=== PATIENT | female | born 1970 | race Caucasian/White ===

== ENCOUNTER 2024-04-22 15:03 | Emergency (ER) | payer OTHER, SELFPAY ==
--- OUTSIDE RECORDS SUMMARY | 2024-04-22 15:16 | XMS_ITS ---
Author Organization [facility] Address [address] [place] [address] Care Team Providers Care Asbestos Cement Sheet Supervisor Name Role Phone No, Physician Primary Care Provider Active Problems Problem Noted Date Diagnosed Date Hyperplastic polyp of stomach 12/17/2022 Gastroesophageal reflux dise ase with esophagitis without hemorrhage 07/21/2022 Epigastric abdominal pain 06/16/2022 Abdominal pain 12/10/2021 Preventative health care 12/10/2021 Assessment & Plan (12/10/2021 11:52 PM CDT): -labs today -advise q 6 month dental exam -advise annual derm check -advise annual eye exam -advise regular exercise 3-5 times a week for 30 minutes -no family hx of early breast or colon cancer -advise covid vaccine and booster (patient has not gotten) -pnemonia shot, shingles shot -advise obgyn -advise flu shot -advise annual mammogram -all vaccines above discussed with oncologist, who agreed with above plan. Patient has yet to get any of these vaccines but strongly encouraged to do so. Asteatosis cutis 12/09/2016 Vitamin D insufficiency 01/10/2016 Assessment & Plan (01/07/2019 3:13 PM CDT): -on vitamin D3 1000 IU daily -levels at goal Assessment & Plan (01/10/2018 2:27 PM CDT): -on vitamin D3 1000 IU daily -levels at goal Allergic contact dermatitis 08/09/2015 Eczema of hand 07/31/2015 Hypothyroidism 01/09/2014 Assessment & Plan (12/10/2021 11:49 PM CDT): Has been out of medicine for several weeks,. Needs a refill Assessment & Plan (01/07/2019 3:13 PM CDT): -TFTs today at goal -will continue levothyroxine 125 mcg daily Assessment & Plan (01/10/2018 2:26 PM CDT): -TFTs today at goal -will continue levothyroxine 125 mcg daily Hay fever 02/16/2012 Chronic myelogenous leukemia (CMS/HCC) 2 Current Oncology Plans Bosutinib PO 400 mg Daily - CML* Plan Start Date:12/26/2018 Plan Provider:Candido Rios MD PhD Linked Problems Chronic myelogenous leukemia (CMS/HCC) (HCC) Treatment Medications bosutinib (BOSULIF) Past Plans Oncology Chemotherapy Treatment Plan Name Start Date Discontinue Date Treatment Medications Discontinue Reason Plan Provider Cycles [id number] - [facility] - CML - [id number] - Bosutinib Weeks 52+ 12/25/19 16 03/16/2019 [facility] bosutinib (2013-09-135/B [id number]) Therapy Complete Candido Rios MD PhD 5 of 6 cycles completed Radiation Treatments * No radiation treatments are documented for this patient in [facility]. Treatments may have been administered in another system. Resolved Problems Problem Noted Date Diagnosed Date Resolved Date Gastroesophageal reflux dise ase with esophagitis 01/19/2014 12/10/2021
--- OUTSIDE RECORDS SUMMARY | 2024-04-22 15:16 | XMS_ITS | Encounter Summary ---
Author Organization [facility] Address [address] [place] [address] Phone Care Team Providers Care Carder Blankets Name Role Phone Inge Pearson MD Primary Care Provider [phone] No, Physician Primary Care Provider [phone] Encounter Details Date Type Department Care Team (Late st Contact Info) Description 10/14/2020 Telephone [facility] Transplant [address] Floor, [place] [address] Fiordaliza Milian V. Social History Tobacco Use Types Packs/Day Years Used Date Smoking Tobacco: Never Smokeless Tobacco: Never Comments Unknown Sex and Gender Information Value Date Recorded Sex Assigned at Not on file Legal Sex Female 7:18 PM HAZARDOUS MATERIALS HANDLER Gender Identity Female 04/14/2020 4:41 PM HAZARDOUS MATERIALS HANDLER Sexual Orientation Not on file documented as of this encounter Plan of Treatment Scheduled Procedures Name Priority Associated Diagnoses Date/Ti me COLONOSCOPY Screening for colon cancer documented as of this encounter Visit Diagnoses Not on filedocumented in this encounter Care Teams Carder Blankets Relationship Specialty Start Date End Date Inge Pearson MD [address] [place] [address] DR [address] [address] PCP - General Internal Medicine 12/04/21 02/24/24 No, Physician PCP - General 02/25/24 documented as of this encounter
--- OUTSIDE RECORDS SUMMARY | 2024-04-22 15:16 | XMS_ITS | Clinical Summary ---
Author Organization [facility] Address [address] [place] [address] Care Team Providers Care Curriculum And Assessment Director Name Role Phone No, Physician Primary Care Provider [phone] Allergies No known active allergies Medications levonorgestrel (MIRENA) IUDIndications :Chronic myelogenous leukemia (CMS/HCC) ([facility]) by intrauterine route Active cetirizine HCl (ZYRTEC ORAL) Take by mouth Ac tive levothyroxine (Euthyrox) 125 mcg tabletIndicati ons:Hypothyroi dism, unspecified type Take 1 tablet (125 mcg total) by mouth daily 90 tablet 4 12/10/19 22 Active Additional Information Patient not taking.Reported on 02/25/2024 pimecrolimus (ELIDEL) 1 % creamIndicatio ns:Eczematous dermatitis of upper eyelids of both eyes Apply two (2) times daily as needed for eyelid rash 30 g 5 12/31/19 23 Active Additional Information Patient not taking.Reported on 02/25/[address] (NexIUM) 20 mg capsuleIndicat ions:Gastroeso phageal reflux disease with esophagitis without hemorrhage Take 1 capsule (20 mg total) by mouth daily before breakfast 90 capsule 3 06/16/19 24 025 Active clobetasoL (TEMOVATE) 0.05 % creamIndicatio ns:Eczema, unspecified type Bid to eczema on hands until clear. 50 g 2 09/27/19 24 Active Premarin vaginal creamIndicatio ns:Chronic myelogenous leukemia (CMS/HCC) (HCC) INSERT 0.5 GRAMS VAGINALLY AT BEDTIME FOR 14 DAYS, THEN USE 2-3 TIMES A WEEK Active levothyroxine (SYNTHROID) 88 mcg tabletIndicati ons:Chronic myelogenous leukemia (CMS/HCC) (HCC) 12/10/19 24 Active bosutinib (Bosulif) 400 mg tabletIndicati ons:Chronic myelogenous leukemia (CMS/HCC) (HCC) TAKE 1 TABLET DAILY WITH FOOD. SWALLOW WHOLE, DO NOT CRUSH OR CUT. DO NOT TOUCH OR HANDLE CRUSHED OR BROKEN TABLETS 90 tablet 11 03/24/19 25 Active Bosulif 400 mg tabletIndicati ons:Chronic myelogenous leukemia (CMS/HCC) (HCC) TAKE 1 TABLET DAILY WITH FOOD. SWALLOW WHOLE, DO NOT CRUSH OR CUT. DO NOT TOUCH OR HANDLE CRUSHED OR BROKEN TABLETS 30 tablet 11 05/03/19 24 025 Discontinued Active Problems Problem Noted Date Diagnosed Date [...] fever 02/16/2012 Chronic myelogenous leukemia (CMS/HCC) 2 Resolved Problems Problem Noted Date Diagnosed Date Resolved Date Gastroesophageal reflux dise ase with esophagitis 01/19/2014 12/10/2021 Encounters Date Type Department Care Team Description 02/25/2024 12:20 PM ART THERAPY CERTIFIED SUPERVISOR - 02/25/2024 11:59 PM ART THERAPY CERTIFIED SUPERVISOR Hospital Encounter [facility] [address] [place] [id number] Discharge Disposition: Discharge to home or self care 02/25/2024 12:00 PM ART THERAPY CERTIFIED SUPERVISOR [facility]) - [facility] [address] [place] [phone] Sridevi Landin NP Contusion of left lower leg, initial encounter (Primary Dx); Acute pain of left knee 01/28/2024 Documentation [facility] [address] [place] [address] Ehsan Bhandari CPhT Prior Auth (BOSULIF) from Last 3 Months Immunizations Name Administration Dates Next Due Influenza, Trivalent, IM (MDV) 01/25/2014 Influenza, Trivalent, Preservative Free, Intramu scular 12/19/2014 Tdap 09/22/2016 Surgical History Surgery Date Site/Laterality Comments APPENDECTOMY 03/15/2002 - 03/14/2003 LAPAROSCOPY 03/15/1994 - 03/14/1995 ovarian cyst COLONOSCOPY 06/01/2022 UPPER GASTROINTESTINAL ENDOSCOPY Medical History Medical History Date Comments Ulcer, stomach peptic 2014 resolved CML (chronic myelocytic leukemia) (CMS/HCC) (HCC ) 07/2004 gleevec, bosulif tx PONV (postoperative nausea and vomiting) GERD (gastroesophageal reflux disease) Chronic constipation Hypothyroid Family History Medical History Relation Name Comments Stroke Father Family history of cerebrovascular accident - (Added by ESTEPHANIE Conv) Diabetes type I Mother Family histo ry of type 1 diabetes mellitus - (Added by ESTEPHANIE Conv) Relation Name Status Comments Father Mother Social History Tobacco Use Types Packs/Day Years Used Date Smoking Tobacco: Never Smokeless Tobacco: Never Tobacco Cessation:Counseling Given: Not Answered AUDIT-C Answer Date Recorded Q1: How often do you have a drink containing alcohol? Never 01/20/2023 Q2: How many drinks containi ng alcohol do you have on a typical day when you are drinking? Patient does not drink Q3: How often do you have si x or more drinks on one occasion? Never 01/20/2023 PHQ-2 Answer Date Recorded PHQ-2 Total Score (If total score is 3 or more points, staff should administer the PHQ-9) 0 12/09/2021 Personal Safety Answer Date Recorded Have you ever been in or are you currently in a harmful physical or emotional relationship or is someone making you feel afraid or unsafe? Denies 01/20/2023 Comments No Sex and Gender Information Value Date Recorded Sex Assigned at Not on file Legal Sex Female 7:18 PM ART THERAPY CERTIFIED SUPERVISOR Gender Identity Female 04/14/2020 4:41 PM ART THERAPY CERTIFIED SUPERVISOR Sexual Orientation Not on file Obstetrics History Last Filed Vital Signs Vital Sign Reading Time Taken Comments Blood Pressure 127/78 12/13/2023 9:05 AM CDT Pulse 73 12/13/2023 9:05 AM CDT Temperature 37.1 C (98.7 F) 12/13/2023 9:05 AM CDT Respiratory Rate 18 12/13/2023 9:05 AM CDT Oxygen Saturation 99% 12/13/2023 9:05 AM CDT Inhaled Oxygen Concentration - - Weight 70.3 kg (155 lb) 02/25/2024 12:08 PM ART THERAPY CERTIFIED SUPERVISOR Height 172.7 cm (5' 8 ) 02/25/2024 12:08 PM ART THERAPY CERTIFIED SUPERVISOR Body Mass Index 23.57 02/25/2024 12:08 PM ART THERAPY CERTIFIED SUPERVISOR Plan of Treatment Scheduled Procedures Name Priority Associated Diagnoses Date/Ti me COLONOSCOPY Screening for colon cancer Health Maintenance Due Date Last Done Comments Cervical Cancer Screening 1972 Pneumococcal vaccine <65 (1 of 2 - PCV) 1978 Hepatitis B Screening 1990 Zoster Vaccine (1 of 2) 06/06/1991 Depression Screening 12/09/2022 12/09/2021 Regular Well Visit/Exam 18-64 12/09/2022 12/09/2021 Influenza Vaccine (#1) 2023 12/19/2014, 2013 Breast Cancer Screening-Mammogram 11/04/2024 11/05/2023, 11/05/2023, 10/07/2022, Additional history exists DTaP/Tdap/Td Vaccine (2 - Td or Tdap) 09/22/2026 09/22/2016 Colon Cancer Screening-Colonoscopy 06/01/20322022, 04/03/2022 Hepatitis C Screening Completed 11/06/2022 Procedures Procedure Name Priority Date/Time Associated Diagnosis Comments XR KNEE LEFT 3 VIEWS Schedule Routine, Read Routine (OP Routine) 02/25/2024 12:31 PM ART THERAPY CERTIFIED SUPERVISOR Acute pain of left knee HEPATITIS C ANTIBODY Routine 11/06/2022 8:09 AM CDT Need for hepatitis C screening test COLONOSCOPY 06/01/2022 7:24 AM CDT from Last 3 Months or Most Recently Relevant to Health Maintenance Results * XR Knee Left 3 View (02/25/2024 12:31 PM ART THERAPY CERTIFIED SUPERVISOR) Anatomical Region Laterality Modality Lower Extremities, Knee Left Computed Radiography 02/25/2024 12:4 4 PM ART THERAPY CERTIFIED SUPERVISOR Impressions 02/25/2024 12:44 PM ART THERAPY CERTIFIED SUPERVISOR 1. Normal radiographs of the left knee. Electronically signed by: Guerrero Robins M.D. Narrative 02/25/2024 12:44 PM ART THERAPY CERTIFIED SUPERVISOR EXAMINATION: XR KNEE LEFT 3 VIEWS HISTORY: Left knee pain FINDINGS: 3 view examination of the left knee is read without comparison. The left knee joint spaces are normal. There is no fracture, erosion, or joint effusion. Alignment is normal. Procedure Note Guerrero Robins MD - 02/25/2024 EXAMINATION: XR KNEE LEFT 3 VIEWS HISTORY: Left knee pain FINDINGS: 3 view examination of the left knee is read without comparison. The left knee joint spaces are normal. There is no fracture, erosion, or joint effusion. Alignment is normal. IMPRESSION: 1. Normal radiographs of the left knee. Electronically signed by: Guerrero Robins M.D. us Sridevi Kathleenyunior Bautista TECHNICAL ACCOUNT EXECUTIVE IMG XR PROCEDU RES Final Result * Hepatitis C antibody (11/06/2022 8:09 AM CDT) Hep C Ab Nonreactive Nonreactive [facility] Comment:Antibodies to HCV no t detected. Does NOT exclude the possibility of recent exposure to HCV. Current interpretive data was last revised on 21 Blood 11/06/2022 8:09 AM CDT 11/06/2022 8:32 AM CDT Narrative [facility] - 11/06/2022 9:14 AM CDT Draw with next routine labs Tamia Pringle MD LAB MICROBIOLOGY - GENERA L ORDERABLES Final Result [facility] [address] [facility] [place] [address] * COLONOSCOPY (06/01/2022 7:24 AM CDT) Anatomical Region Laterality Modality Other Narrative Procedure Note Stuart Morejon MD - 06/01/2022 7:24 AM CDT ENDOSCOPY LAB Patient Name: Ehsan Carbajal Procedure Date: 06/01/2022 7:24 AM Admit Type: Outpatient Room: [facility] Date of : 1970 Instrument Name: -[id number] Gender: Female Note Status: Finalized Procedure: Colonoscopy Indications: Screening for colorectal malignant neoplasm Providers: Stuart Morejon M.D. Referring MD: Inge Pearson M.D. Medicines: Monitored Anesthesia Care Complications: No immediate complications. Estimated Blood Loss: Estimated blood loss: none. Estimated blood loss: none. Procedure: Pre-Anesthesia Assessment: - Prior to the procedure, a History and Physicalwas performed, and patient medications, allergies and sensitivities were reviewed. The patient'stolerance of previous anesthesia was reviewed. - The risks and benefits of the procedure and the sedation options and risks were discussed with the patient. All questions were answered and informed consent was obtained. - Immediately prior to administration ofmedications, the patient was re-assessed for adequacy to receive sedatives. - Sedation was administered by an anesthesia professional. Deep sedation was attained. - The heart rate, respiratory rate, oxygen saturations, blood pressure, adequacy of pulmonary ventilation, and response to care were monitored throughout the procedure. The benefits, risks and alternatives of theprocedure and sedation were discussed and informed consentwas obtained. All questions were answered. Please referto the signed informed consent document in the medical record. The scope was passed under direct vision.The Colonoscope was introduced through the anus and advanced to the the cecum, identified byappendiceal orifice and ileocecal valve. The colonoscopy was performed without difficulty. The patient tolerated the procedure well. The quality of the bowel preparation was evaluated using the BBPS (BostonBowel Preparation Scale) with scores of: Right Colon = 3, Transverse Colon = 3 and Left Colon = 3 (entiremucosa seen well with no residual staining, smallfragments of stool or opaque liquid). The total BBPS score equals 9. The quality of the bowel preparation was evaluated using the BBPS ([place] Bowel Preparation Scale) with scores of: Right Colon = 3 (entiremucosa seen well with no residual staining, smallfragments of stool or opaque liquid), Transverse Colon = 3 (entire mucosa seen well with no residual staining, small fragments of stool or opaque liquid) and Left Colon = 3 (entire mucosa seen well with no residual staining, small fragments of stool or opaqueliquid). The total BBPS score equals 9. The quality of the bowel preparation was good. The bowel preparationused was GoLYTELY via extended prep with split dose instruction. Bowel prep was administered using asplit dose. Bowel prep was administered using a splitdose. Findings: The perianal and digital rectal examinations were normal. A 6 mm polyp was found in the descending colon. The polyp wassessile. The polyp was removed with a cold snare. Resection was complete, and retrieval was complete. The pathology specimen was placed into BottleA. A 5 mm polyp was found in the sigmoid colon. The polyp was sessile.The polyp was removed with a cold snare. Resection and retrieval were complete. The pathology specimen was placed into Bottle A. The exam was otherwise without abnormality. Right colon examinedtwice Non-bleeding internal hemorrhoids were found during retroflexion. The hemorrhoids were medium-sized. Impression: - One 6 mm polyp in the descending colon, removedwith a cold snare. Resected and retrieved. - One 5 mm polyp in the sigmoid colon, removed witha cold snare. Resected and retrieved. - The examination was otherwise normal. - Non-bleeding internal hemorrhoids. Recommendation: - Discharge patient to home. - Patient has a contact number available for emergencies. The signs and symptoms of potential delayed complications were discussed with thepatient. Return to normal activities tomorrow. Written discharge instructions were provided to thepatient. - Await pathology results. - Repeat colonoscopy in 5-7 years for surveillance based on pathology results. Pt will need 2 day prep next time as well - In the unusual situation that you developabdominal pain, bleeding or other significant problems inthe days following this procedure please call my office [phone]). After hours and eveningsplease call [phone] and speak to the GI fellow oncall fellow. Please tell the fellow that Dr. Morejon did your procedure and that you were instructed to have the fellow call me or the physician covering for meto discuss the management of your condition. If youhave an urgent problem, please go to the nearestemergency room and have the ER doctor call my office duringthe day or the GI fellow after hours and weekends to arrange admission or transfer to our facility.Please bring this report with you if you go to theemergency room. Attending Participation: I personally performed the entire procedure. Electronically signed by Stuart Morejon MD Stuart Morejon M.D. 06/01/2022 8:15:08 AM This document was signed electronically. Number of Addenda: 0 Note Initiated On: 06/01/2022 7:24 AM Scope Withdrawal Time: 0 hours 19 minutes 5 seconds Scope In: 7:33:48 AM Scope Out: 8:05:54 AM Stuart Morejon MD ENDOSCOPY PROCEDURES F inal Result from Last 3 Months or Most Recently Relevant to Health Maintenance Insurance [employer] HMO/POS [employer] COVENTRY HMO/POS [employer] COVENTRY HMO/POS Advance Directives For more information, please contact: [phone] * Full Code (Latest Code Status on File) Date Activated Date Inactivated Comments 01/20/2023 8:32 AM 01/20/2023 2:34 PM * Full Code Date Activated Date Inactivated Comments 08/13/2022 9:44 AM 08/13/2022 3:18 PM * Full Code Date Activated Date Inactivated Comments 06/01/2022 6:42 AM 06/01/2022 12:44 PM * Full Code Date Activated Date Inactivated Comments 04/03/2022 11:51 AM 04/03/2022 5:36 PM Care Teams Curriculum And Assessment Director Relationship Specialty Start Date End Date No, Physician PCP - General 02/25/24
--- OUTSIDE RECORDS SUMMARY | 2024-04-22 15:16 | XMS_ITS | Referral Summary ---
Author Organization [facility] Address [address] [place] [address] Care Team Providers Care Manufacturing Leader Name Role Phone No, Physician Primary Care Provider [phone] Encounters Date Type Department Care Team Description 02/25/2024 12:20 PM STRIP MINE SUPERVISOR - 02/25/2024 11:59 PM STRIP MINE SUPERVISOR Hospital Encounter [facility] [address] [place] [address] Discharge Disposition: Discharge to home or self care 02/25/2024 12:00 PM STRIP MINE SUPERVISOR Office Visit [facility]) - [facility] [address] [place] [phone] Sridevi Landin NP Contusion of left lower leg, initial encounter (Primary Dx); Acute pain of left knee 01/28/2024 Documentation [facility] - [facility]fusion [facility] [address] [facility] Floor [address] [place] [address] Ehsan Bhandari CPhT Prior Auth (BOSULIF) from Last 3 Months Allergies No known active allergies Medications levonorgestrel (MIRENA) IUDIndications :Chronic myelogenous leukemia (CMS/HCC) (HCC) by intrauterine route Active cetirizine HCl (ZYRTEC [...] Premarin vaginal creamIndicatio ns:Chronic myelogenous leukemia (CMS/HCC) ([facility]) INSERT 0.5 GRAMS VAGINALLY AT BEDTIME FOR [...] daily Hay fever 02/16/2012 Chronic myelogenous leukemia ([facility]/HCC) 2 Resolved Problems Problem Noted Date Diagnosed Date Resolved Date Gastroesophageal reflux dise ase with esophagitis 01/19/2014 12/10/2021 Immunizations Name Administration Dates Next Due Influenza, Trivalent, IM (MDV) 01/25/2014 Influenza, Trivalent, Preservative Free, Intramu scular 12/19/2014 Tdap 09/22/2016 Social History Tobacco Use Types Packs/Day Years [...] on file Legal Sex Female 7:18 PM STRIP MINE SUPERVISOR Gender Identity Female 04/14/2020 4:41 PM STRIP MINE SUPERVISOR Sexual Orientation Not on file Last Filed Vital Signs Vital Sign Reading Time Taken Comments Blood Pressure 127/78 12/13/2023 9:05 AM CDT Pulse 73 12/13/2023 9:05 AM CDT Temperature 37.1 C (98.7 F) 12/13/2023 9:05 AM CDT Respiratory Rate 18 12/13/2023 9:05 AM CDT Oxygen Saturation 99% 12/13/2023 9:05 AM CDT Inhaled Oxygen Concentration - - Weight 70.3 kg (155 lb) 02/25/2024 12:08 PM STRIP MINE SUPERVISOR Height 172.7 cm (5' 8 ) 02/25/2024 12:08 PM STRIP MINE SUPERVISOR Body Mass Index 23.57 02/25/2024 12:08 PM STRIP MINE SUPERVISOR Plan of Treatment Scheduled Procedures Name Priority Associated Diagnoses Date/Ti me COLONOSCOPY Screening for colon cancer Procedures Procedure Name Priority Date/Time Associated Diagnosis Comments XR KNEE LEFT 3 VIEWS Schedule Routine, Read Routine (OP Routine) 02/25/2024 12:31 PM STRIP MINE SUPERVISOR Acute pain of left knee HEPATITIS C ANTIBODY Routine 11/06/2022 8:09 AM CDT Need for hepatitis C screening test COLONOSCOPY 06/01/2022 7:24 AM CDT from Last 3 Months or Most Recently Relevant to Health Maintenance Results * XR Knee Left 3 View (02/25/2024 12:31 PM STRIP MINE SUPERVISOR) Anatomical Region Laterality Modality Lower Extremities, Knee Left Computed Radiography 02/25/2024 12:4 4 PM STRIP MINE SUPERVISOR Impressions 02/25/2024 12:44 PM STRIP MINE SUPERVISOR 1. Normal radiographs of the left knee. Electronically signed by: Guerrero Robins M.D. Narrative 02/25/2024 12:44 PM STRIP MINE SUPERVISOR EXAMINATION: XR KNEE LEFT 3 VIEWS [...] signed by: Guerrero Robins M.D. us Sridevi Bautista NP IMG XR PROCEDU RES Final Result * Hepatitis C antibody (11/06/2022 8:09 AM CDT) Hep C Ab Nonreactive Nonreactive [facility] Comment:Antibodies to HCV no t detected. Does NOT exclude the possibility of recent exposure to HCV. Current interpretive data was last revised on 21 Blood 11/06/2022 8:09 AM CDT 11/06/2022 8:32 AM CDT Narrative [facility] - 11/06/2022 9:14 AM CDT Draw with next routine labs us Tamia Pringle MD LAB MICROBIOLOGY - GENERA L ORDERABLES Final Result [facility] Department [place] [address] * COLONOSCOPY (06/01/2022 7:24 AM CDT) Anatomical Region Laterality Modality Other Narrative Procedure Note Stuart Morejon MD - 06/01/2022 7:24 AM CDT ENDOSCOPY LAB Patient Name: Ehsan Carbajal Procedure Date: 06/01/2022 7:24 AM Admit Type: Outpatient Room: [facility] Date of : 1970 Instrument Name: [id number] Gender: Female Note Status: Finalized Procedure: Colonoscopy [...] bowel preparation was evaluated using the BBPS (Kevin Bowel Preparation Scale) with scores of: Right [...] following this procedure please call my office [phone]). After hours and eveningsplease call [phone] and speak to the GI fellow oncall [...] In: 7:33:48 AM Scope Out: 8:05:54 AM us Stuart Morejon MD ENDOSCOPY PROCEDURES F inal Result from Last 3 Months or Most Recently Relevant to Health Maintenance Insurance [employer] COVENTRY HMO/POS A[employer] COVENTRY HMO/POS Advance Directives For more information, please contact: [phone] * Full Code (Latest Code Status on File) Date Activated Date Inactivated Comments 01/20/2023 8:32 AM 01/20/2023 2:34 PM * Full Code Date Activated Date Inactivated Comments 08/13/2022 9:44 AM 08/13/2022 3:18 PM * Full Code Date Activated Date Inactivated Comments 06/01/2022 6:42 AM 06/01/2022 12:44 PM * Full Code Date Activated Date Inactivated Comments 04/03/2022 11:51 AM 04/03/2022 5:36 PM Care Teams Manufacturing Leader Relationship Specialty Start Date End Date No, Physician PCP - General 02/25/24
--- OUTSIDE RECORDS SUMMARY | 2024-04-22 15:19 | XMS_ITS | Encounter Summary ---
Author Organization [facility] Address [address] [place] [address] Care Team Providers Care Shade Matcher Name Role Phone Kervin Kam MD Primary Care Provider Encounter Details Date Type Department Care Team (Late st Contact Info) Description 10/07/2004 Outpatient Historical [facility] NEWSCAST PRODUCER - Medical [place] B [facility] [id number] [place] [address] Raul Bar MD [id number] [place] [address] Social History Tobacco Use Types Packs/Day Years Used Date Smoking Tobacco: Never Assessed Comments Unknown Sex and Gender Information Value Date Recorded Sex Assigned at Not on file Legal Sex Female 5:24 AM THEATRE ARTS PROFESSOR Gender Identity Not on file Sexual Orientation Not on file documented as of this encounter Plan of Treatment Not on file documented as of this encounter Visit Diagnoses Not on filedocumented in this encounter Care Teams Shade Matcher Relationship Specialty Start Date End Date Kervin Kam MD [address] [place] [phone] PCP - General Internal Medicine 04/19/14 documented as of this encounter
--- OUTSIDE RECORDS SUMMARY | 2024-04-22 15:19 | XMS_ITS | Encounter Summary ---
Author Organization [facility] Address [address] [place] [address] Care Team Providers Care Asthma Educator Name Role Phone Kervin Kam MD Primary Care Provider Encounter Details Date Type Department Care Team (Late st Contact Info) Description 12/27/2006 Outpatient Historical [facility] MANAGER EMBALMER FUNERAL DIRECTOR - [facility] [address] [facility] [address] [place] [address] Raul Bar MD [address] [facility] [address] [address] Social History Tobacco Use Types Packs/Day Years Used Date Smoking Tobacco: Never Assessed Comments Unknown Sex and Gender Information Value Date Recorded Sex Assigned at Not on file Legal Sex Female 5:24 AM WOOL CLASSER Gender Identity Not on file Sexual Orientation Not on file documented as of this encounter Plan of Treatment Not on file documented as of this encounter Visit Diagnoses Not on filedocumented in this encounter Care Teams Asthma Educator Relationship Specialty Start Date End Date Kervin Kam MD [address] [place] [address] PCP - General Internal Medicine 04/19/14 documented as of this encounter
--- OUTSIDE RECORDS SUMMARY | 2024-04-22 15:19 | XMS_ITS | Encounter Summary ---
Author Organization [facility] Address [address] [place] [address] Care Team Providers Care Manager Asset Management Name Role Phone Kervin Kam MD Primary Care Provider Encounter Details Date Type Department Care Team (Late st Contact Info) Description 10/13/2005 Outpatient Historical [facility] TECHNICAL EXPERT - Medical [place] B [facility] [id number] [place] [address] Raul Bar MD [phone] [place] [address] Social History Tobacco Use Types Packs/Day Years Used Date Smoking Tobacco: Never Assessed Comments Unknown Sex and Gender Information Value Date Recorded Sex Assigned at Not on file Legal Sex Female 5:24 AM WHIRLEY OPERATOR Gender Identity Not on file Sexual Orientation Not on file documented as of this encounter Plan of Treatment Not on file documented as of this encounter Visit Diagnoses Not on filedocumented in this encounter Care Teams Manager Asset Management Relationship Specialty Start Date End Date Kervin Kam MD [address] [place] [phone] PCP - General Internal Medicine 04/19/14 documented as of this encounter
--- OUTSIDE RECORDS SUMMARY | 2024-04-22 15:19 | XMS_ITS | Encounter Summary ---
Author Organization [facility] Address [address] [place] [address] Care Team Providers Care Concrete Handler Name Role Phone Kervin Kam MD Primary Care Provider Encounter Details Date Type Department Care Team (Late st Contact Info) Description 06/12/2003 Outpatient Historical [facility] SUPERVISOR DRYING AND WINDING - Medical [place] B [facility] [id number] [place] [address] Raul Bar MD [phone] [place] [address] Social History Tobacco Use Types Packs/Day Years Used Date Smoking Tobacco: Never Assessed Comments Unknown Sex and Gender Information Value Date Recorded Sex Assigned at Not on file Legal Sex Female 5:24 AM GOLD MINER Gender Identity Not on file Sexual Orientation Not on file documented as of this encounter Plan of Treatment Not on file documented as of this encounter Visit Diagnoses Not on filedocumented in this encounter Care Teams Concrete Handler Relationship Specialty Start Date End Date Kervin Kam MD [address] [place] [phone] PCP - General Internal Medicine 04/19/14 documented as of this encounter
--- OUTSIDE RECORDS SUMMARY | 2024-04-22 15:19 | XMS_ITS | Encounter Summary ---
Author Organization [facility] Address [address] [place] [address] Care Team Providers Care Manager Green Name Role Phone Kervin Kam MD Primary Care Provider Encounter Details Date Type Department Care Team (Late st Contact Info) Description 05/02/2003 Outpatient Historical [facility] CONCENTRATOR OPERATOR - Medical [place] B [facility] [phone] [place] [address] Raul Bar MD [phone] [place] [address] Social History Tobacco Use Types Packs/Day Years Used Date Smoking Tobacco: Never Assessed Comments Unknown Sex and Gender Information Value Date Recorded Sex Assigned at Not on file Legal Sex Female 5:24 AM ADOBE CQ DEVELOPER Gender Identity Not on file Sexual Orientation Not on file documented as of this encounter Plan of Treatment Not on file documented as of this encounter Visit Diagnoses Not on filedocumented in this encounter Care Teams Manager Green Relationship Specialty Start Date End Date Kervin Kam MD [address] [place] [phone] PCP - General Internal Medicine 04/19/14 documented as of this encounter
--- OUTSIDE RECORDS SUMMARY | 2024-04-22 15:19 | XMS_ITS | Encounter Summary ---
Author Organization [facility] Address [address] [place] [address] Care Team Providers Care International Account Executive Name Role Phone Kervin Kam MD Primary Care Provider Encounter Details Date Type Department Care Team (Late st Contact Info) Description 05/01/2003 Outpatient Historical [facility] JEWELER APPRENTICE - Medical [place] B [facility] [phone] [place] [address] Raul Bar MD [phone] [place] [address] Social History Tobacco Use Types Packs/Day Years Used Date Smoking Tobacco: Never Assessed Comments Unknown Sex and Gender Information Value Date Recorded Sex Assigned at Not on file Legal Sex Female 5:24 AM WINDOWS AND DOORS INSTALLER Gender Identity Not on file Sexual Orientation Not on file documented as of this encounter Plan of Treatment Not on file documented as of this encounter Visit Diagnoses Not on filedocumented in this encounter Care Teams International Account Executive Relationship Specialty Start Date End Date Kervin Kam MD [address] [place] [phone] PCP - General Internal Medicine 04/19/14 documented as of this encounter
--- OUTSIDE RECORDS SUMMARY | 2024-04-22 15:19 | XMS_ITS | Encounter Summary ---
Author Organization [facility] Address [address] [place] [address] Care Team Providers Care Network Support Engineer Name Role Phone Kervin Kam MD Primary Care Provider Encounter Details Date Type Department Care Team (Latest Contact Info) Description 01/09/2000 Outpatient Historical [facility] Raul Bar MD [address] [facility] [address] [address] Vaginitis and vulvovaginitis, unspecified (Primary Dx) Social History Tobacco Use Types Packs/Day Years Used Date Smoking Tobacco: Never Assessed Comments Unknown Sex and Gender Information Value Date Recorded Sex Assigned at Not on file Legal Sex Female 5:24 AM LOAN WORKOUT OFFICER Gender Identity Not on file Sexual Orientation Not on file documented as of this encounter Plan of Treatment Not on file documented as of this encounter Visit Diagnoses Diagnosis Vaginitis and vulvovaginitis, unspecified- Primary documented in this encounter Care Teams Network Support Engineer Relationship Specialty Start Date End Date Kervin Kam MD [address] [place] [address] PCP - General Internal Medicine 04/19/14 documented as of this encounter
--- OUTSIDE RECORDS SUMMARY | 2024-04-22 15:19 | XMS_ITS | Encounter Summary ---
Author Organization [facility] Address [address] [place] [address] Care Team Providers Care Wildlife Biology Technician Name Role Phone Kervin Kam MD Primary Care Provider Encounter Details Date Type Department Care Team (Late st Contact Info) Description 03/09/2000 Outpatient Historical [facility] MICROECONOMICS PROFESSOR - Medical [place] B [facility] [id number] [place] [address] Raul Bar MD [id number] [place] [address] Social History Tobacco Use Types Packs/Day Years Used Date Smoking Tobacco: Never Assessed Comments Unknown Sex and Gender Information Value Date Recorded Sex Assigned at Not on file Legal Sex Female 5:24 AM SKIN THERAPIST Gender Identity Not on file Sexual Orientation Not on file documented as of this encounter Plan of Treatment Not on file documented as of this encounter Visit Diagnoses Not on filedocumented in this encounter Care Teams Wildlife Biology Technician Relationship Specialty Start Date End Date Kervin Kam MD [address] [place] [phone] PCP - General Internal Medicine 04/19/14 documented as of this encounter
--- OUTSIDE RECORDS SUMMARY | 2024-04-22 15:19 | XMS_ITS | Encounter Summary ---
Author Organization [facility] Address [address] [place] [address] Care Team Providers Care Regional Economic Liaison Name Role Phone Kervin Kam MD Primary Care Provider Encounter Details Date Type Department Care Team (Latest Contact Info) Description 05/01/2003 Inpatient Historical [facility] PATIENT IN A BED Raul Bar MD [address] [facility] [address] [address] DEL W 1 DEG LACERAT-DEL (Primary Dx) Social History Tobacco Use Types Packs/Day Years Used Date Smoking Tobacco: Never Assessed Comments Unknown Sex and Gender Information Value Date Recorded Sex Assigned at Not on file Legal Sex Female 5:24 AM BUS WASHER Gender Identity Not on file Sexual Orientation Not on file documented as of this encounter Plan of Treatment Not on file documented as of this encounter Visit Diagnoses Diagnosis First-degree perineal laceration, with delivery- Primary documented in this encounter Care Teams Regional Economic Liaison Relationship Specialty Start Date End Date Kervin Kam MD [address] [place] [address] PCP - General Internal Medicine 04/19/14 documented as of this encounter
--- OUTSIDE RECORDS SUMMARY | 2024-04-22 15:19 | XMS_ITS | Encounter Summary ---
Author Organization [facility] Address [address] [place] [address] Care Team Providers Care It Operations Specialist Name Role Phone Kervin Kam MD Primary Care Provider Encounter Details Date Type Department Care Team (Late st Contact Info) Description 05/02/1999 Outpatient Historical [facility] ERP IMPLEMENTATION CONSULTANT - Medical [place] B [facility] [phone] [place] [address] Raul Bar MD [phone] [place] [address] Social History Tobacco Use Types Packs/Day Years Used Date Smoking Tobacco: Never Assessed Comments Unknown Sex and Gender Information Value Date Recorded Sex Assigned at Not on file Legal Sex Female 5:24 AM CRYPTOLOGIC TECHNICIAN Gender Identity Not on file Sexual Orientation Not on file documented as of this encounter Plan of Treatment Not on file documented as of this encounter Visit Diagnoses Not on filedocumented in this encounter Care Teams It Operations Specialist Relationship Specialty Start Date End Date Kervin Kam MD [address] [place] [phone] PCP - General Internal Medicine 04/19/14 documented as of this encounter
--- OUTSIDE RECORDS SUMMARY | 2024-04-22 15:19 | XMS_ITS | Encounter Summary ---
Author Organization [facility] Address [address] [place] [address] Care Team Providers Care Structural Engineering Drafting Officer Name Role Phone Kervin Kam MD Primary Care Provider Encounter Details Date Type Department Care Team (Late st Contact Info) Description 01/09/2000 Outpatient Historical [facility] LABOR REPRESENTATIVE - Medical [place] B [facility] [id number] [place] [address] Raul Bar MD [phone] [place] [address] Social History Tobacco Use Types Packs/Day Years Used Date Smoking Tobacco: Never Assessed Comments Unknown Sex and Gender Information Value Date Recorded Sex Assigned at Not on file Legal Sex Female 5:24 AM SENIOR LINUX UNIX ADMINISTRATOR Gender Identity Not on file Sexual Orientation Not on file documented as of this encounter Plan of Treatment Not on file documented as of this encounter Visit Diagnoses Not on filedocumented in this encounter Care Teams Structural Engineering Drafting Officer Relationship Specialty Start Date End Date Kervin Kam MD [address] [place] [phone] PCP - General Internal Medicine 04/19/14 documented as of this encounter
--- OUTSIDE RECORDS SUMMARY | 2024-04-22 15:19 | XMS_ITS | Encounter Summary ---
Author Organization [facility] Address [address] [place] [address] Care Team Providers Care Disposition Clerk Name Role Phone Kervin Kam MD Primary Care Provider Encounter Details Date Type Department Care Team (Late st Contact Info) Description 02/10/2000 Outpatient Historical [facility] CONCRETE MIXING PLANT LABORER - Medical [place] B [facility] [id number] [place] [address] Raul Bar MD [id number] [place] [address] Social History Tobacco Use Types Packs/Day Years Used Date Smoking Tobacco: Never Assessed Comments Unknown Sex and Gender Information Value Date Recorded Sex Assigned at Not on file Legal Sex Female 5:24 AM JDE DEVELOPER Gender Identity Not on file Sexual Orientation Not on file documented as of this encounter Plan of Treatment Not on file documented as of this encounter Visit Diagnoses Not on filedocumented in this encounter Care Teams Disposition Clerk Relationship Specialty Start Date End Date Kervin Kam MD [address] [place] [phone] PCP - General Internal Medicine 04/19/14 documented as of this encounter
--- OUTSIDE RECORDS SUMMARY | 2024-04-22 15:19 | XMS_ITS | Encounter Summary ---
Author Organization [facility] Address [address] [place] [address] Care Team Providers Care Hogshead Builder Name Role Phone Kervin Kam MD Primary Care Provider Encounter Details Date Type Department Care Team (Late st Contact Info) Description 10/09/2003 Outpatient Historical [facility] CAREER TRANSITION SPECIALIST - Medical [place] B [facility] [phone] [place] [address] Raul Bar MD [id number] [place] [address] Social History Tobacco Use Types Packs/Day Years Used Date Smoking Tobacco: Never Assessed Comments Unknown Sex and Gender Information Value Date Recorded Sex Assigned at Not on file Legal Sex Female 5:24 AM GLASS TECHNICIAN Gender Identity Not on file Sexual Orientation Not on file documented as of this encounter Plan of Treatment Not on file documented as of this encounter Visit Diagnoses Not on filedocumented in this encounter Care Teams Hogshead Builder Relationship Specialty Start Date End Date Kervin Kam MD [address] [place] [phone] PCP - General Internal Medicine 04/19/14 documented as of this encounter
--- OUTSIDE RECORDS SUMMARY | 2024-04-22 15:19 | XMS_ITS | Encounter Summary ---
Author Organization [facility] Address [address] [place] [address] Care Team Providers Care Chemical Processing Laborer Name Role Phone Kervin Kam MD Primary Care Provider Encounter Details Date Type Department Care Team (Late st Contact Info) Description 05/02/2003 Outpatient Historical [facility] GAMING PIT BOSS - Medical [place] B [facility] [id number] [place] [address] Raul Bar MD [phone] [place] [address] Social History Tobacco Use Types Packs/Day Years Used Date Smoking Tobacco: Never Assessed Comments Unknown Sex and Gender Information Value Date Recorded Sex Assigned at Not on file Legal Sex Female 5:24 AM BIOPHYSICS TEACHER Gender Identity Not on file Sexual Orientation Not on file documented as of this encounter Plan of Treatment Not on file documented as of this encounter Visit Diagnoses Not on filedocumented in this encounter Care Teams Chemical Processing Laborer Relationship Specialty Start Date End Date Kervin Kam MD [address] [place] [phone] PCP - General Internal Medicine 04/19/14 documented as of this encounter
--- OUTSIDE RECORDS SUMMARY | 2024-04-22 15:20 | XMS_ITS | Encounter Summary ---
Author Organization [facility] Address [address] [place] [address] Care Team Providers Care Manager Generation Name Role Phone Kervin Kam MD Primary Care Provider Encounter Details Date Type Department Care Team (Late st Contact Info) Description 08/24/2000 Outpatient Historical [facility] COMMUNITY RELATIONS REPRESENTATIVE - Medical [place] B [facility] [id number] [place] [address] Raul Bar MD [id number] [place] [address] Social History Tobacco Use Types Packs/Day Years Used Date Smoking Tobacco: Never Assessed Comments Unknown Sex and Gender Information Value Date Recorded Sex Assigned at Not on file Legal Sex Female 5:24 AM CAR UNLOADER HELPER Gender Identity Not on file Sexual Orientation Not on file documented as of this encounter Plan of Treatment Not on file documented as of this encounter Visit Diagnoses Not on filedocumented in this encounter Care Teams Manager Generation Relationship Specialty Start Date End Date Kervin Kam MD [address] [place] [phone] PCP - General Internal Medicine 04/19/14 documented as of this encounter
--- OUTSIDE RECORDS SUMMARY | 2024-04-22 15:20 | XMS_ITS | Encounter Summary ---
Author Organization [facility] Address [address] [place] [address] Care Team Providers Care Rotary Drill Operator Name Role Phone Kervin Kam MD Primary Care Provider Encounter Details Date Type Department Care Team (Late st Contact Info) Description 04/16/2000 Outpatient Historical [facility] RECORDING ARTIST - Medical [place] B [facility] [id number] [place] [address] Raul Bar MD [id number] [place] [address] Social History Tobacco Use Types Packs/Day Years Used Date Smoking Tobacco: Never Assessed Comments Unknown Sex and Gender Information Value Date Recorded Sex Assigned at Not on file Legal Sex Female 5:24 AM GEAR TOOTH LAPPING MACHINE OPERATOR Gender Identity Not on file Sexual Orientation Not on file documented as of this encounter Plan of Treatment Not on file documented as of this encounter Visit Diagnoses Not on filedocumented in this encounter Care Teams Rotary Drill Operator Relationship Specialty Start Date End Date Kervin Kam MD [address] [place] [phone] PCP - General Internal Medicine 04/19/14 documented as of this encounter
--- OUTSIDE RECORDS SUMMARY | 2024-04-22 15:20 | XMS_ITS | Encounter Summary ---
Author Organization [facility] Address [address] [place] [address] Care Team Providers Care Veneer Jointer Operator Name Role Phone Kervin Kam MD Primary Care Provider Encounter Details Date Type Department Care Team (Latest Contact Info) Description 02/01/2008 Outpatient Historical [facility] Asha Carrillo MD [address] [place] [address] Other Screening Mammogram Social History Tobacco Use Types Packs/Day Years Used Date Smoking Tobacco: Never Assessed Comments Unknown Sex and Gender Information Value Date Recorded Sex Assigned at Not on file Legal Sex Female 5:24 AM HYDRAULIC REPAIRER Gender Identity Not on file Sexual Orientation Not on file documented as of this encounter Plan of Treatment Not on file documented as of this encounter Procedures Procedure Name Priority Date/Time Associated Diagnosis Comments MAMMO SCREEN BILAT W OR WO CAD Routine 02/01/2008 8:27 AM HYDRAULIC REPAIRER documented in this encounter Results * MAMMO DIGITAL SCREEN BILAT (02/01/2008 8:27 AM HYDRAULIC REPAIRER) Anatomical Region Laterality Modality Breast Bilateral Other 02/01/2008 8:27 AM HYDRAULIC REPAIRER Narrative 02/03/2008 8:19 [address] [place], [place] [address] Admit Date: 02/01/2008 EHSAN CAMERON Sex: F Admit Prov: ASHA AARON Date: 1970 Primary Care Prov: CMRN: [id number] [id number] Ordering Prov: GALENORIONPerla Bennett Accession Number: [id number] Interpretation BILATERAL SCREENING DIGITAL MAMMOGRAMS WITH COMPUTER ASSISTED DIAGNOSIS 02/01/2008 Clinical History: Routine screening study. This is the patient's baseline study. The breast parenchyma is heterogeneously dense. No new dominant masses, suspicious calcifications or areas of parenchymal asymmetry or distortion are identified. The images were reviewed using the CAD system. Impression: Stable screening mammogram Recommend routine followup Overall assessment: BIRADS category 1 - Negative. Assessment BIRADS: 1-Negative Recommendation: Normal interval follow-up Dictated by: TIANNA VITAL Electronically signed by: TIANNA VITAL 02/03/2008 08:18 Transcribed: 02/02/2008 13:21 SDJ Procedure Note Tianna Vital - 02/03/2008 [address] [place], [place] [address] Admit Date: 02/01/2008 EHSAN CAMERON Sex: F Admit Prov: ASHA AARON Date: 1970 Primary Care Prov: CMRN: [id number] [id number] IMAGING SERVICES Ordering Prov: MARYJUANITAORIONPerla Bennett Interpretation BILATERAL SCREENING DIGITAL MAMMOGRAMS WITH COMPUTER ASSISTEDDIAGNOSIS 02/01/2008 Clinical History: Routine screening study. This is the patient's baseline study. The breast parenchyma is heterogeneously dense. No new dominant masses, suspiciouscalcifications or areas of parenchymal asymmetry or distortion are identified. Theimages were reviewed using the CAD system. Impression: Stable screening mammogram Recommend routine followup Overall assessment: BIRADS category 1 - Negative. Assessment BIRADS: 1-Negative Recommendation: Normal interval follow-up Dictated by: TIANNA VITAL Electronically signed by: TIANNA VITAL 02/03/2008 08:18 Transcribed: 02/02/2008 13:21 SDJ Asha Aaron MD MAMMO ORDERABLES Final Result documented in this encounter Visit Diagnoses Diagnosis Other screening mammogram documented in this encounter Care Teams Veneer Jointer Operator Relationship Specialty Start Date End Date Kervin Kam MD [address] [place] [address] PCP - General Internal Medicine 04/19/14 documented as of this encounter
--- OUTSIDE RECORDS SUMMARY | 2024-04-22 15:20 | XMS_ITS | Encounter Summary ---
Author Organization [facility] Address [address] [place] [address] Care Team Providers Care Proof Technician Helper Name Role Phone Kervin Kam MD Primary Care Provider Encounter Details Date Type Department Care Team (Latest Contact Info) Description 04/22/2003 Outpatient Historical [facility] Heri Carroll MD [address] [address] Raul Bar MD [address] [place] [address] THRT HERBERT LABOR-ANTEPART (Primary Dx) Social History Tobacco Use Types Packs/Day Years Used Date Smoking Tobacco: Never Assessed Comments Unknown Sex and Gender Information Value Date Recorded Sex Assigned at Not on file Legal Sex Female 5:24 AM STABILIZER OPERATOR Gender Identity Not on file Sexual Orientation Not on file documented as of this encounter Plan of Treatment Not on file documented as of this encounter Visit Diagnoses Diagnosis Threatened premature labor, antepartum(644.03)- Primary Threatened premature labor, antepartum documented in this encounter Care Teams Proof Technician Helper Relationship Specialty Start Date End Date Kervin Kam MD [address] [place] [address] PCP - General Internal Medicine 04/19/14 documented as of this encounter
--- OUTSIDE RECORDS SUMMARY | 2024-04-22 15:20 | XMS_ITS | Encounter Summary ---
Author Organization [facility] Address [address] [place] [address] Care Team Providers Care Motion Picture Projectionist Name Role Phone Kervin Kam MD Primary Care Provider Encounter Details Date Type Department Care Team (Late st Contact Info) Description 08/05/2000 Outpatient Historical [facility] FIELD TECH - Medical [place] [facility] [id number] [place] [address] Raul Bar MD [id number] [place] [address] Social History Tobacco Use Types Packs/Day Years Used Date Smoking Tobacco: Never Assessed Comments Unknown Sex and Gender Information Value Date Recorded Sex Assigned at Not on file Legal Sex Female 5:24 AM SPLINE ROLLING MACHINE JOB SETTER Gender Identity Not on file Sexual Orientation Not on file documented as of this encounter Plan of Treatment Not on file documented as of this encounter Visit Diagnoses Not on filedocumented in this encounter Care Teams Motion Picture Projectionist Relationship Specialty Start Date End Date Kervin Kam MD [address] [place] [phone] PCP - General Internal Medicine 04/19/14 documented as of this encounter
--- OUTSIDE RECORDS SUMMARY | 2024-04-22 15:20 | XMS_ITS | Clinical Summary ---
Author Organization [facility] Address [address] [place] [address] Care Team Providers Care Eap Consultant Name Role Phone Kervin Kam MD Primary Care Provider Allergies No known active allergies Medications LEVONORGESTREL (MIRENA INTRAUTERINE) by Intrauterine route. Active clobetasoL (TEMOVATE) 0.05 % Solution APPLY SOLUTION TOPICALLY TWICE DAILY TO POSTERIOR SCALP 1 Active Bosulif 400 mg tablet 1 Active Euthyrox 125 mcg tablet 1 Active conjugated estrogens (Premarin) 0.625 mg/gram vaginal creamIndicatio ns:Vaginal dryness,Dyspar eunia in female Insert 0.5 Grams vaginally see administration instructions. 30 Gram 6 4 Active Active Problems Problem Noted Date Diagnosed Date IUD (intrauterine device) in place 02/19/2012 Overview (02/19/2012): Mirena inserted 02/13/2012. 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 02/19/2012 Encounters Date Type Department Care Team Description 04/05/2024 External Device Data ST[facility] ABSTRACTION Provider, Abstract 04/04/2024 External Device Data [facility] ABSTRACTION Provider, Abstract 03/28/2024 External Device Data [facility] ABSTRACTION Provider, Abstract from Last 3 Months Immunizations Immunization Administration Dates Next Due (ADACEL/BOOSTRIX)(10 YR UP) TDAP VACCINE, 0.5ML, IM 09/22/2016 Influenza Vaccine Tri Split 4+ Pf Im 12/19/2014 Family History Medical History Relation Name Comments Healthy Daughter Beatriz Stroke Father Healthy Mother Colon Cancer Other stage 4 Healthy Sister 1 Healthy Sister 2 Healthy Sister 3 Breast Cancer Neg Hx Cancer Neg Hx Other Neg Hx 02/19 Ovarian Cancer Neg Hx Relation Name Status Comments Daughter Beatriz Alive Father Alive Maternal Grandfather Maternal Grandmother Alive Mother Alive Other Paternal Grandfather Paternal Grandmother Sister 1 Alive Sister 2 Alive Sister 3 Alive Social History Tobacco Use Types Packs/Day Years Used Date Smoking Tobacco: Never Smokeless Tobacco: Never Tobacco Cessation:Counseling Given: Not Answered Alcohol Use Standard Drinks/Week Comments No 0 (1 standard drink = 0.6 oz pur e alcohol) Comments No Sex and Gender Information Value Date Recorded Sex Assigned at Not on file 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 Gender Identity Not on file Sexual Orientation Not on file Occupation Industry Job Start Date Job End Date Not on file Not on file Not on file Not on file Last Filed Vital Signs Vital Sign Reading Time Taken Comments Blood Pressure 126/74 11/25/2023 2:36 PM CDT Pulse 71 11/25/2023 2:36 PM CDT Temperature 36.4 C (97.6 F) 11/25/2023 2:36 PM CDT Respiratory Rate - - Oxygen Saturation 98% 11/25/2023 2:36 PM CDT Inhaled Oxygen Concentration - - Weight 72.6 kg (160 lb 2 oz) 11/25/2023 2:36 PM CDT Height 172.7 cm (5' 8 ) 11/25/2023 2:36 PM CDT Body Mass Index 24.35 11/25/2023 2:36 PM CDT Plan of Treatment Health Maintenance Due Date Last Done Comments HEPATITIS B VACCINES (1 of 3 - 19+ 3-dose series) 06/06/1991 FIT-DNA Q 3 years 2017 FIT/FOBT Q 1 year 2017 Flex Sig/CT Colonography Q 5 years 2017 ZOSTER VACCINE (1 of 2) 2022 INFLUENZA VACCINE (#1) 2023 12/19/2014, 2013 BREAST CANCER SCREENING 11/04/2024 11/05/19 24, 10/07/2022, 09/22/2021, Additional history exists CERVICAL CANCER SCREENING 11/24/20242023, 10/07/2023, 09/21/2022, Additional history exists DTAP/TDAP/TD VACCINES (2 - Td or Tdap) 09/22/2026 09/22/2016 COLORECTAL SCREENING 06/01/2032 06/01/2022, 06/01/2022, 04/03/2022 Colorectal Cancer Screening 06/01/2032 PNEUMOCOCCAL VACCINE 0-64 YEARS Aged Out No longer eligible based on patient's age to complete this topic Procedures Procedure Name Priority Date/Time Associated Diagnosis Comments CERV/VAG CYTO AGE BASED SCREEN PAP Routine 11/25/2023 2:48 PM CDT Screening for cervical cancer Screening for human papillomavirus (HPV) MAMMO 3D LALA SCREEN BILAT W OR WO CAD Routine 11/05/2023 8:18 AM CDT Visit for screening mammogram from Last 3 Months or Most Recently Relevant to Health Maintenance Results * CERV/VAG CYTO AGE BASED SCREEN PAP (11/25/2023 2:48 PM CDT) COMMENT (PAP): [facility] Comment: This order for age-based cervical cancer and STI screening follows ACOG guidelines(PB 168, 140, LJE879). See individual assays for performing site location. CLINICAL INFORMATION [facility] Comment:None given LAST MENSTRUAL PERIOD [facility] Comment:None given PREV PAP: [facility] [place] [facility] Comment:None given PREV BX: [facility] [place] [facility] Comment:None given SOURCE [facility] [place] [facility] Comment:Endocervix ADEQUACY: [facility] [place] [facility] Comment: Satisfactory for evaluation. Endocervical/transformation zone component present. Age and/or menstrual status not provided Partially obscuring inflammation PAP INTERP [facility] Comment: Cytology Results: Negative for intraepithelial lesion or malignancy. COMMENT (PAP TEST) [facility] [place] Comment: This Pap test has been evaluated with computer assisted technology. RETAIL FIELD REPRESENTATIVE: Martin Domingo Comment: PCM, CT(ASCP) CT Screening Location: [place] [address] [place] [address] EXPLANATORY NOTE Que [facility] Domingo Comment: EXPLANATORY NOTE: The Pap is a screening test for cervical cancer. It is not a diagnostic test and is subject to false negative and false positive results. It is most reliable when a satisfactory sample, regularly obtained, is submitted with relevant clinical findings and history, and when the Pap result is evaluated along with historic and current clinical information. HPV E6/E7 Not Detected Not Detected [facility] Comment: Methodology: Director Utilization Management-Mediated Amplification This assay detects E6/E7 viral messenger RNA (mRNA) from 14 high-risk HPV types (16,18,31,33,35,39,45,51,52,56,58,59,66,68). Cervical sources are required for HPV testing. If a vaginal source from a patient who has had a total hysterectomy with removal of cervix was submitted, please contact the testing laboratory for alternative testing options. For additional information, please refer to http://education.[employer]/faq/CUV082j2 (This link if provided for information/ educational purposes only.) Test Performed at: [facility] [address] [address] Magy HARDY Genital SWAB OF ENDOCERVIX / Unknown 11/25/2023 2:48 PM CDT 11/26/2023 2:46 AM CDT Chelle Amaya NP PATHOLOGY/CYTOLOGY ORDERABLES F inal Result [facility] [phone] [place] [address] [phone] * MAMMO 3D LALA SCREEN BILAT W OR WO CAD (11/05/2023 8:18 AM CDT) Anatomical Region Laterality Modality Breast Bilateral Mammography 11/05/2023 8:18 AM CDT Impressions 11/05/2023 12:56 PM CDT IMPRESSION: No mammographic evidence of malignancy. OVERALL FINAL ASSESSMENT: BI-RADS Category 1: Negative mammogram. RECOMMENDATION: Bilateral screening mammogram in one year. DICTATION LOCATION: [facility] Narrative 11/05/2023 12:56 PM CDT BILATERAL SCREENING DIGITAL MAMMOGRAM WITH 3D TOMOSYNTHESIS AND CAD DATE: 11/05/2023 8:18 AM COMPARISON: Multiple prior mammograms, dating back to 09/13/2019 and most recently 10/07/2022. HISTORY: Screening mammogram. TECHNIQUE: Low-dose full-field digital breast tomosynthesis examination was performed with 2D and 3D acquisitions. Examination is read in conjunction with computer aided detection. BREAST COMPOSITION: The breasts are heterogeneously dense, which may obscure small masses. FINDINGS: There is no suspicious mass, clustered microcalcification, or architectural distortion in either breast on 2D or 3D images. There has been no change in the mammographic appearance compared with the prior study. Procedure Note Kyle Qiu MD - 11/05/2023 BILATERAL SCREENING DIGITAL MAMMOGRAM WITH 3D TOMOSYNTHESIS AND CAD DATE: 11/05/2023 8:18 AM COMPARISON: Multiple prior mammograms, dating back to 09/13/2019 and most recently 10/07/2022. HISTORY: Screening mammogram. TECHNIQUE: Low-dose full-field digital breast tomosynthesis examination was performed with 2D and 3D acquisitions. Examination is read in conjunction with computer aided detection. BREAST COMPOSITION: The breasts are heterogeneously dense, which may obscure small masses. FINDINGS: There is no suspicious mass, clustered microcalcification, or architectural distortion in either breast on 2D or 3D images. There has been no change in the mammographic appearance compared with the prior study. IMPRESSION: No mammographic evidence of malignancy. OVERALL FINAL ASSESSMENT: BI-RADS Category 1: Negative mammogram. RECOMMENDATION: Bilateral screening mammogram in one year. DICTATION LOCATION: [facility] Chelle Amaya NP MAMMO ORDERABLES Final Result from Last 3 Months or Most Recently Relevant to Health Maintenance Insurance * Guarantor: [employer]ana [employer] Account Type Relation to Patient Date of Phone Billing Address Personal/Family Self 1970 [phone] (Work) [address] [place] [address] [employer] PPO Care Teams Eap Consultant Relationship Specialty Start Date End Date Kervin Kam MD [address] [place] [address] PCP - General Internal Medicine 04/19/14
--- OUTSIDE RECORDS SUMMARY | 2024-04-22 15:20 | XMS_ITS | Encounter Summary ---
Author Organization [facility] Address [address] [place] [address] Care Team Providers Care Design Coordinator Name Role Phone Kervin Kam MD Primary Care Provider Encounter Details Date Type Department Care Team (Late st Contact Info) Description 01/02/2003 Outpatient Historical [facility] PRESIDENT AND CHIEF COMMERCIAL OFFICER - Medical [address] [address] Heri Carroll MD [address] [place] [address] Social History Tobacco Use Types Packs/Day Years Used Date Smoking Tobacco: Never Assessed Comments Unknown Sex and Gender Information Value Date Recorded Sex Assigned at Not on file 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
--- OUTSIDE RECORDS SUMMARY | 2024-04-22 15:20 | XMS_ITS | Encounter Summary ---
Author Organization [facility] Address [address] [place] [address] Care Team Providers Care Mortgage Coordinator Name Role Phone Kervin Kam MD Primary Care Provider Encounter Details Date Type Department Care Team (Late st Contact Info) Description 04/10/2003 Outpatient Historical [facility] HEALTH INFORMATION ADMINISTRATOR - Medical [place] B [facility] [id number] [place] [address] Raul Bar MD [id number] [place] [address] Social History Tobacco Use Types Packs/Day Years Used Date Smoking Tobacco: Never Assessed Comments Unknown Sex and Gender Information Value Date Recorded Sex Assigned at Not on file Legal Sex Female 5:24 AM AVIATION MEDICINE SPECIALIST Gender Identity Not on file Sexual Orientation Not on file documented as of this encounter Plan of Treatment Not on file documented as of this encounter Visit Diagnoses Not on filedocumented in this encounter Care Teams Mortgage Coordinator Relationship Specialty Start Date End Date Kervin Kam MD [address] [place] [phone] PCP - General Internal Medicine 04/19/14 documented as of this encounter
--- OUTSIDE RECORDS SUMMARY | 2024-04-22 15:20 | XMS_ITS | Encounter Summary ---
Author Organization [facility] Address 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
--- OUTSIDE RECORDS SUMMARY | 2024-04-22 15:20 | XMS_ITS | Encounter Summary ---
Author Organization [facility] Address [address] [place] [address] Care Team Providers Care Building Superintendent Name Role Phone Kervin Kam MD Primary Care Provider Encounter Details Date Type Department Care Team (Late st Contact Info) Description 08/13/2000 Outpatient Historical [facility] AGRICULTURIST - Medical [place] [facility] [id number] [place] [address] Raul Bar MD [id number] [place] [address] Social History Tobacco Use Types Packs/Day Years Used Date Smoking Tobacco: Never Assessed Comments Unknown Sex and Gender Information Value Date Recorded Sex Assigned at Not on file Legal Sex Female 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
--- OUTSIDE RECORDS SUMMARY | 2024-04-22 15:20 | XMS_ITS | Encounter Summary ---
Author Organization [facility] Address [address] [place] [address] Care Team Providers Care Nursing Services Manager Name Role Phone Kervin Kam MD Primary Care Provider Encounter Details Date Type Department Care Team (Late st Contact Info) Description 08/24/2000 Outpatient Historical [facility] PITTING MACHINE OPERATOR - Medical [place] [facility] [id number] [place] [address] Raul Bar MD [id number] [place] [address] Social History Tobacco Use Types Packs/Day Years Used Date Smoking Tobacco: Never Assessed Comments Unknown Sex and Gender Information Value Date Recorded Sex Assigned at Not on file 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
--- OUTSIDE RECORDS SUMMARY | 2024-04-22 15:20 | XMS_ITS | Encounter Summary ---
Author Organization [facility] Address [address] [place] [address] Care Team Providers Care Goods Layer Name Role Phone Kervin Kam MD Primary Care Provider Encounter Details Date Type Department Care Team (Late st Contact Info) Description 05/14/2000 Outpatient Historical [facility] TECHNICAL PROJECT LEAD - Medical [place] B [facility] [id number] [place] [address] Raul Bar MD [phone] [place] [address] Social History Tobacco Use Types Packs/Day Years Used Date Smoking Tobacco: Never Assessed Comments Unknown Sex and Gender Information Value Date Recorded Sex Assigned at Not on file Legal Sex Female 5:24 AM SOCIAL WORK SPECIALIST Gender Identity Not on file Sexual Orientation Not on file documented as of this encounter Plan of Treatment Not on file documented as of this encounter Visit Diagnoses Not on filedocumented in this encounter Care Teams Goods Layer Relationship Specialty Start Date End Date Kervin Kam MD [address] [place] [phone] PCP - General Internal Medicine 04/19/14 documented as of this encounter
--- OUTSIDE RECORDS SUMMARY | 2024-04-22 15:20 | XMS_ITS | Encounter Summary ---
Author Organization [facility] Address [address] [place] [address] Care Team Providers Care Orderly Name Role Phone Kervin Kam MD Primary Care Provider Encounter Details Date Type Department Care Team (Late st Contact Info) Description 12/06/2002 Outpatient Historical [facility] HEAVY DUTY PRESS OPERATOR - [facility] [address] [facility] [address] [place] [address] Raul Bar MD [address] [facility] [address] [address] Social History Tobacco Use Types Packs/Day Years Used Date Smoking Tobacco: Never Assessed Comments Unknown Sex and Gender Information Value Date Recorded Sex Assigned at Not on file Legal Sex Female 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
--- OUTSIDE RECORDS SUMMARY | 2024-04-22 15:20 | XMS_ITS | Encounter Summary ---
Author Organization [employer] [facility] Address [address] [place] [address] Care Team Providers Care Flight Paramedic Name Role Phone Kervin Kam MD Primary Care Provider Encounter Details Date Type Department Care Team (Latest Contact Info) Description 08/24/2000 Inpatient Historical [facility] IN [facility]ED Raul Bar MD [address] [facility] [address] [address] Forceps or vacuum extractor delivery without mention of indication, delivered, with or without mention of antepartum condition (Primary Dx) Social History Tobacco Use Types Packs/Day Years Used Date Smoking Tobacco: Never Assessed Comments Unknown Sex and Gender Information Value Date Recorded Sex Assigned at Not on file Legal Sex Female 5:24 AM REACTOR KETTLE OPERATOR Gender Identity Not on file Sexual Orientation Not on file documented as of this encounter Plan of Treatment Not on file documented as of this encounter Visit Diagnoses Diagnosis Forceps or vacuum extractor delivery without mention of indication, delivered, with or without mention of antepartum condition- Primary documented in this encounter Care Teams Flight Paramedic Relationship Specialty Start Date End Date Kervin Kam MD [address] [place] [address] PCP - General Internal Medicine 04/19/14 documented as of this encounter
--- OUTSIDE RECORDS SUMMARY | 2024-04-22 15:20 | XMS_ITS | Encounter Summary ---
Author Organization [facility] Address [address] [place] [address] Care Team Providers Care Sports Cartoonist Name Role Phone Kervin Kam MD Primary Care Provider Encounter Details Date Type Department Care Team (Late st Contact Info) Description 04/16/2000 Outpatient Historical [facility] INDUSTRIAL YARD BRAKE COUPLER - Medical [place] B [facility] [phone] [place] [address] Raul Bar MD [id number] [place] [address] Social History Tobacco Use Types Packs/Day Years Used Date Smoking Tobacco: Never Assessed Comments Unknown Sex and Gender Information Value Date Recorded Sex Assigned at Not on file Legal Sex Female 5:24 AM DATE PITTER Gender Identity Not on file Sexual Orientation Not on file documented as of this encounter Plan of Treatment Not on file documented as of this encounter Visit Diagnoses Not on filedocumented in this encounter Care Teams Sports Cartoonist Relationship Specialty Start Date End Date Kervin Kam MD [address] [place] [phone] PCP - General Internal Medicine 04/19/14 documented as of this encounter
--- OUTSIDE RECORDS SUMMARY | 2024-04-22 15:20 | XMS_ITS | Encounter Summary ---
Author Organization [facility] Address [address] [place] [address] Care Team Providers Care Access Coordinator Name Role Phone Kervin Kam MD Primary Care Provider [phone] Encounter Details Date Type Department Care Team (Late st Contact Info) Description 08/17/2000 Outpatient Historical [facility] ELECTRONICS INSTALLER - Medical [place] B [facility] [id number] [place] [address] Raul Bar MD [phone] [place] [address] Social History Tobacco Use Types Packs/Day Years Used Date Smoking Tobacco: Never Assessed Comments Unknown Sex and Gender Information Value Date Recorded Sex Assigned at Not on file Legal Sex Female 5:24 AM DINKEY PRESS OPERATOR Gender Identity Not on file Sexual Orientation Not on file documented as of this encounter Plan of Treatment Not on file documented as of this encounter Visit Diagnoses Not on filedocumented in this encounter Care Teams Access Coordinator Relationship Specialty Start Date End Date Kervin Kam MD [address] [place] [phone] PCP - General Internal Medicine 04/19/14 documented as of this encounter
--- OUTSIDE RECORDS SUMMARY | 2024-04-22 15:20 | XMS_ITS | Encounter Summary ---
Author Organization [facility] Address [address] [place] [address] Care Team Providers Care Mink Slicer Name Role Phone Kervin Kam MD Primary Care Provider Encounter Details Date Type Department Care Team (Late st Contact Info) Description 02/16/2003 Outpatient Historical [facility] AUDIOMETRIC TECHNICIAN - Medical [place] B [facility] [id number] [place] [address] Raul Bar MD [phone] [place] [address] Social History Tobacco Use Types Packs/Day Years Used Date Smoking Tobacco: Never Assessed Comments Unknown Sex and Gender Information Value Date Recorded Sex Assigned at Not on file Legal Sex Female 5:24 AM CONTRACT TECHNICAL WRITER Gender Identity Not on file Sexual Orientation Not on file documented as of this encounter Plan of Treatment Not on file documented as of this encounter Visit Diagnoses Not on filedocumented in this encounter Care Teams Mink Slicer Relationship Specialty Start Date End Date Kervin Kam MD [address] [place] [phone] PCP - General Internal Medicine 04/19/14 documented as of this encounter
--- OUTSIDE RECORDS SUMMARY | 2024-04-22 15:20 | XMS_ITS | Encounter Summary ---
Author Organization [facility] Address [address] [place] [address] Care Team Providers Care Storage And Backup Administrator Name Role Phone Kervin Kam MD Primary Care Provider Encounter Details Date Type Department Care Team (Late st Contact Info) Description 05/05/2002 Outpatient Historical [facility] MANNEQUIN SANDER AND FINISHER - Medical [place] B [facility] [id number] [place] [address] Raul Bar MD [phone] [place] [address] Social History Tobacco Use Types Packs/Day Years Used Date Smoking Tobacco: Never Assessed Comments Unknown Sex and Gender Information Value Date Recorded Sex Assigned at Not on file Legal Sex Female 5:24 AM SENIOR UI DEVELOPER Gender Identity Not on file Sexual Orientation Not on file documented as of this encounter Plan of Treatment Not on file documented as of this encounter Visit Diagnoses Not on filedocumented in this encounter Care Teams Storage And Backup Administrator Relationship Specialty Start Date End Date Kervin Kam MD [address] [place] [phone] PCP - General Internal Medicine 04/19/14 documented as of this encounter
--- OUTSIDE RECORDS SUMMARY | 2024-04-22 15:20 | XMS_ITS | Encounter Summary ---
Author Organization [facility] Address [address] [place] [address] Care Team Providers Care Studio Assistant Name Role Phone Kervin Kam MD Primary Care Provider [phone] Encounter Details Date Type Department Care Team (Late st Contact Info) Description 03/09/2003 Outpatient Historical [facility] VENEER JOINER - Medical [place] B [facility] [id number] [place] [address] Raul Bar MD [phone] [place] [address] Social History Tobacco Use Types Packs/Day Years Used Date Smoking Tobacco: Never Assessed Comments Unknown Sex and Gender Information Value Date Recorded Sex Assigned at Not on file Legal Sex Female 5:24 AM HONEY LIQUEFIER Gender Identity Not on file Sexual Orientation Not on file documented as of this encounter Plan of Treatment Not on file documented as of this encounter Visit Diagnoses Not on filedocumented in this encounter Care Teams Studio Assistant Relationship Specialty Start Date End Date Kervin Kam MD [address] [place] [phone] PCP - General Internal Medicine 04/19/14 documented as of this encounter
--- OUTSIDE RECORDS SUMMARY | 2024-04-22 15:20 | XMS_ITS | Encounter Summary ---
Author Organization [facility] Address [address] [place] [address] Care Team Providers Care Supervisor Reinforced Steel Placing Name Role Phone Kervin Kam MD Primary Care Provider Encounter Details Date Type Department Care Team (Late st Contact Info) Description 12/06/2002 Outpatient Historical [facility] TRAVEL TRAILER COMPONENTS ASSEMBLER - Medical [address] [address] Heri Carroll MD [address] [place] [address] Social History Tobacco Use Types Packs/Day Years Used Date Smoking Tobacco: Never Assessed Comments Unknown Sex and Gender Information Value Date Recorded Sex Assigned at Not on file Legal Sex Female 5:24 AM ARCHEOLOGY PROFESSOR Gender Identity Not on file Sexual Orientation Not on file documented as of this encounter Plan of Treatment Not on file documented as of this encounter Visit Diagnoses Not on filedocumented in this encounter Care Teams Supervisor Reinforced Steel Placing Relationship Specialty Start Date End Date Kervin Kam MD [address] [place] [address] PCP - General Internal Medicine 04/19/14 documented as of this encounter
--- OUTSIDE RECORDS SUMMARY | 2024-04-22 15:20 | XMS_ITS | Encounter Summary ---
Author Organization [facility] Address [address] [place] [address] Care Team Providers Care Educational Institution President Name Role Phone Kervin Kam MD Primary Care Provider Encounter Details Date Type Department Care Team (Late st Contact Info) Description 10/10/2002 Outpatient Historical [facility] MUTUEL DEPARTMENT MANAGER - Medical [place] B [facility] [phone] [place] [address] Raul Bar MD [phone] [place] [address] Social History Tobacco Use Types Packs/Day Years Used Date Smoking Tobacco: Never Assessed Comments Unknown Sex and Gender Information Value Date Recorded Sex Assigned at Not on file Legal Sex Female 5:24 AM PRECISION JIG GRINDER Gender Identity Not on file Sexual Orientation Not on file documented as of this encounter Plan of Treatment Not on file documented as of this encounter Visit Diagnoses Not on filedocumented in this encounter Care Teams Educational Institution President Relationship Specialty Start Date End Date Kervin Kam MD [address] [place] [phone] PCP - General Internal Medicine 04/19/14 documented as of this encounter
--- OUTSIDE RECORDS SUMMARY | 2024-04-22 15:20 | XMS_ITS | Encounter Summary ---
Author Organization [facility] Address [address] [place] [address] Care Team Providers Care Services Program Manager Name Role Phone Kervin Kam MD Primary Care Provider Encounter Details Date Type Department Care Team (Late st Contact Info) Description 10/24/2002 Outpatient Historical [facility] BLOOD COLLECTOR - Medical [place] [facility] [id number] [place] [address] Raul Bar MD [phone] [place] [address] Social History Tobacco Use Types Packs/Day Years Used Date Smoking Tobacco: Never Assessed Comments Unknown Sex and Gender Information Value Date Recorded Sex Assigned at Not on file Legal Sex Female 5:24 AM PLUG MACHINE OPERATOR Gender Identity Not on file Sexual Orientation Not on file documented as of this encounter Plan of Treatment Not on file documented as of this encounter Visit Diagnoses Not on filedocumented in this encounter Care Teams Services Program Manager Relationship Specialty Start Date End Date Kervin Kam MD [address] [place] [phone] PCP - General Internal Medicine 04/19/14 documented as of this encounter
--- OUTSIDE RECORDS SUMMARY | 2024-04-22 15:20 | XMS_ITS | Encounter Summary ---
Author Organization [employer] Address [address] [place] [address] Care Team Providers Care Pharmaceutical Assistant Name Role Phone Kervin Kam MD Primary Care Provider Encounter Details Date Type Department Care Team (Latest Contact Info) Description 07/11/2002 Inpatient Historical HIS PATIENT IN A BED Huma Junior MD [address] [place] [address] [address] [address] ACUTE APPENDICITIS NOS (Primary Dx) Social History Tobacco Use Types Packs/Day Years Used Date Smoking Tobacco: Never Assessed Comments Unknown Sex and Gender Information Value Date Recorded Sex Assigned at Not on file Legal Sex Female 5:24 AM ALMOND PASTE MOLDER Gender Identity Not on file Sexual Orientation Not on file documented as of this encounter Plan of Treatment Not on file documented as of this encounter Visit Diagnoses Diagnosis Acute appendicitis without mention of peritonitis- Primary documented in this encounter Care Teams Pharmaceutical Assistant Relationship Specialty Start Date End Date Kervin Kam MD [address] [place] [phone] PCP - General Internal Medicine 04/19/14 documented as of this encounter
--- OUTSIDE RECORDS SUMMARY | 2024-04-22 15:20 | XMS_ITS | Encounter Summary ---
Author Organization [facility] Address [address] [place] [address] Care Team Providers Care Bilingual Manager Name Role Phone Kervin Kam MD Primary Care Provider [phone] Encounter Details Date Type Department Care Team (Late st Contact Info) Description 01/31/2003 Outpatient Historical [facility] TRANSCRIPT EVALUATOR - [facility] [address] [place] [address] Raul Bar MD [address] [facility] [address] [address] Social History Tobacco Use Types Packs/Day Years Used Date Smoking Tobacco: Never Assessed Comments Unknown Sex and Gender Information Value Date Recorded Sex Assigned at Not on file Legal Sex Female 5:24 AM BANQUET SUPERVISOR Gender Identity Not on file Sexual Orientation Not on file documented as of this encounter Plan of Treatment Not on file documented as of this encounter Visit Diagnoses Not on filedocumented in this encounter Care Teams Bilingual Manager Relationship Specialty Start Date End Date Kervin Kam MD [address] [place] [phone] PCP - General Internal Medicine 04/19/14 documented as of this encounter
--- OUTSIDE RECORDS SUMMARY | 2024-04-22 15:20 | XMS_ITS | Encounter Summary ---
Author Organization [facility] Address [address] [place] [address] Care Team Providers Care Vacuum Evaporation Operator Name Role Phone Kervin Kam MD Primary Care Provider Encounter Details Date Type Department Care Team (Late st Contact Info) Description 03/26/2003 Outpatient Historical [facility] COMPOSITE LAMINATOR - [facility] [address] [facility] [address] [place] [address] Raul Bar MD [address] [facility] [address] [address] Social History Tobacco Use Types Packs/Day Years Used Date Smoking Tobacco: Never Assessed Comments Unknown Sex and Gender Information Value Date Recorded Sex Assigned at Not on file Legal Sex Female 5:24 AM MELT SUPERINTENDANT Gender Identity Not on file Sexual Orientation Not on file documented as of this encounter Plan of Treatment Not on file documented as of this encounter Visit Diagnoses Not on filedocumented in this encounter Care Teams Vacuum Evaporation Operator Relationship Specialty Start Date End Date Kervin Kam MD [address] [place] [phone] PCP - General Internal Medicine 04/19/14 documented as of this encounter
--- OUTSIDE RECORDS SUMMARY | 2024-04-22 15:20 | XMS_ITS | Encounter Summary ---
Author Organization [facility] Address [address] [place] [address] Care Team Providers Care Crusher Supervisor Name Role Phone Kervin Kam MD Primary Care Provider Encounter Details Date Type Department Care Team (Late st Contact Info) Description 10/05/2000 Outpatient Historical [facility] SURVEY RESEARCH ANALYST - Medical [place] B [facility] [id number] [place] [address] Raul Bar MD [id number] [place] [address] Social History Tobacco Use Types Packs/Day Years Used Date Smoking Tobacco: Never Assessed Comments Unknown Sex and Gender Information Value Date Recorded Sex Assigned at Not on file Legal Sex Female 5:24 AM METAPHYSICIAN Gender Identity Not on file Sexual Orientation Not on file documented as of this encounter Plan of Treatment Not on file documented as of this encounter Visit Diagnoses Not on filedocumented in this encounter Care Teams Crusher Supervisor Relationship Specialty Start Date End Date Kervin Kam MD [address] [place] [phone] PCP - General Internal Medicine 04/19/14 documented as of this encounter
--- OUTSIDE RECORDS SUMMARY | 2024-04-22 15:20 | XMS_ITS | Encounter Summary ---
Author Organization [facility] Address [address] [place] [address] Care Team Providers Care Motor Installer Name Role Phone Kervin Kam MD Primary Care Provider Encounter Details Date Type Department Care Team (Late st Contact Info) Description 06/14/2000 Outpatient Historical [facility] SAP DEVELOPER - Medical [address] [address] Heri Carroll MD [address] [place] [address] Social History Tobacco Use Types Packs/Day Years Used Date Smoking Tobacco: Never Assessed Comments Unknown Sex and Gender Information Value Date Recorded Sex Assigned at Not on file Legal Sex Female 5:24 AM PERSONAL INVESTMENT ADVISER Gender Identity Not on file Sexual Orientation Not on file documented as of this encounter Plan of Treatment Not on file documented as of this encounter Visit Diagnoses Not on filedocumented in this encounter Care Teams Motor Installer Relationship Specialty Start Date End Date Kervin Kam MD [address] [place] [address] PCP - General Internal Medicine 04/19/14 documented as of this encounter
--- OUTSIDE RECORDS SUMMARY | 2024-04-22 15:20 | XMS_ITS | Encounter Summary ---
Author Organization [facility] Address [address] [place] [address] Care Team Providers Care Assistant Auditor Name Role Phone Kervin Kam MD Primary Care Provider [phone] Encounter Details Date Type Department Care Team (Late st Contact Info) Description 04/24/2003 Outpatient Historical [facility] BACTERIOLOGY TECHNICIAN - Medical [place] B [facility] [phone] [place] [address] Raul Bar MD [id number] [place] [address] Social History Tobacco Use Types Packs/Day Years Used Date Smoking Tobacco: Never Assessed Comments Unknown Sex and Gender Information Value Date Recorded Sex Assigned at Not on file Legal Sex Female 5:24 AM KNOBBER Gender Identity Not on file Sexual Orientation Not on file documented as of this encounter Plan of Treatment Not on file documented as of this encounter Visit Diagnoses Not on filedocumented in this encounter Care Teams Assistant Auditor Relationship Specialty Start Date End Date Kervin Kam MD [address] [place] [phone] PCP - General Internal Medicine 04/19/14 documented as of this encounter
--- OUTSIDE RECORDS SUMMARY | 2024-04-22 15:20 | XMS_ITS | Encounter Summary ---
Author Organization [facility] Address [address] [place] [address] Care Team Providers Care Metal Mover Name Role Phone Kervin Kam MD Primary Care Provider Encounter Details Date Type Department Care Team (Late st Contact Info) Description 04/25/2002 Outpatient Historical [facility] RIVER AND HARBOR SOUNDINGS GROUP LEADER - Medical [place] B [facility] [phone] [place] [address] Raul Bar MD [id number] [place] [address] Social History Tobacco Use Types Packs/Day Years Used Date Smoking Tobacco: Never Assessed Comments Unknown Sex and Gender Information Value Date Recorded Sex Assigned at Not on file Legal Sex Female 5:24 AM ORTHOPEDIC MECHANIC Gender Identity Not on file Sexual Orientation Not on file documented as of this encounter Plan of Treatment Not on file documented as of this encounter Visit Diagnoses Not on filedocumented in this encounter Care Teams Metal Mover Relationship Specialty Start Date End Date Kervin Kam MD [address] [place] [phone] PCP - General Internal Medicine 04/19/14 documented as of this encounter
--- OUTSIDE RECORDS SUMMARY | 2024-04-22 15:20 | XMS_ITS | Encounter Summary ---
Author Organization [facility] Address [address] [place] [address] Care Team Providers Care Freight Sorter Name Role Phone Kervin Kam MD Primary Care Provider Encounter Details Date Type Department Care Team (Late st Contact Info) Description 12/05/2002 Outpatient Historical [facility] NETWORK STRATEGIST - Medical [place] B [facility] [phone] [place] [address] Raul Bar MD [phone] [place] [address] Social History Tobacco Use Types Packs/Day Years Used Date Smoking Tobacco: Never Assessed Comments Unknown Sex and Gender Information Value Date Recorded Sex Assigned at Not on file Legal Sex Female 5:24 AM CAROUSEL ATTENDANT Gender Identity Not on file Sexual Orientation Not on file documented as of this encounter Plan of Treatment Not on file documented as of this encounter Visit Diagnoses Not on filedocumented in this encounter Care Teams Freight Sorter Relationship Specialty Start Date End Date Kervin Kam MD [address] [place] [phone] PCP - General Internal Medicine 04/19/14 documented as of this encounter
--- OUTSIDE RECORDS SUMMARY | 2024-04-22 15:20 | XMS_ITS | Encounter Summary ---
Author Organization [facility] Address [address] [place] [address] Care Team Providers Care Filling Station Laborer Name Role Phone Kervin Kam MD Primary Care Provider Encounter Details Date Type Department Care Team (Late st Contact Info) Description 04/17/2003 Outpatient Historical [facility] ELASTIC ATTACHER COVERSTITCH - Medical [place] B [facility] [id number] [place] [address] Raul Bar MD [id number] [place] [address] Social History Tobacco Use Types Packs/Day Years Used Date Smoking Tobacco: Never Assessed Comments Unknown Sex and Gender Information Value Date Recorded Sex Assigned at Not on file Legal Sex Female 5:24 AM STRATEGIC MARKETING ASSOCIATE Gender Identity Not on file Sexual Orientation Not on file documented as of this encounter Plan of Treatment Not on file documented as of this encounter Visit Diagnoses Not on filedocumented in this encounter Care Teams Filling Station Laborer Relationship Specialty Start Date End Date Kervin Kam MD [address] [place] [phone] PCP - General Internal Medicine 04/19/14 documented as of this encounter
--- OUTSIDE RECORDS SUMMARY | 2024-04-22 15:20 | XMS_ITS | Encounter Summary ---
Author Organization [facility] Address [address] [place] [address] Care Team Providers Care Pipe Smoking Machine Offbearer Name Role Phone Kervin Kam MD Primary Care Provider Encounter Details Date Type Department Care Team (Late st Contact Info) Description 09/26/2002 Outpatient Historical [facility] GOLF SALES MANAGER - Medical [place] B [facility] [id number] [place] [address] Raul Bar MD [phone] [place] [address] Social History Tobacco Use Types Packs/Day Years Used Date Smoking Tobacco: Never Assessed Comments Unknown Sex and Gender Information Value Date Recorded Sex Assigned at Not on file Legal Sex Female 5:24 AM STEEPLE JACK Gender Identity Not on file Sexual Orientation Not on file documented as of this encounter Plan of Treatment Not on file documented as of this encounter Visit Diagnoses Not on filedocumented in this encounter Care Teams Pipe Smoking Machine Offbearer Relationship Specialty Start Date End Date Kervin Kam MD [address] [place] [phone] PCP - General Internal Medicine 04/19/14 documented as of this encounter
--- OUTSIDE RECORDS SUMMARY | 2024-04-22 15:20 | XMS_ITS | Encounter Summary ---
Author Organization [facility] Address [address] [place] [address] Care Team Providers Care Tightening Machine Operator Name Role Phone Kervin Kam MD Primary Care Provider Encounter Details Date Type Department Care Team (Late st Contact Info) Description 07/09/2000 Outpatient Historical [facility] FOOT DOCTOR - Medical [place] B [facility] [phone] [place] [address] Raul Bar MD [phone] [place] [address] Social History Tobacco Use Types Packs/Day Years Used Date Smoking Tobacco: Never Assessed Comments Unknown Sex and Gender Information Value Date Recorded Sex Assigned at Not on file Legal Sex Female 5:24 AM BREAKFAST ATTENDANT Gender Identity Not on file Sexual Orientation Not on file documented as of this encounter Plan of Treatment Not on file documented as of this encounter Visit Diagnoses Not on filedocumented in this encounter Care Teams Tightening Machine Operator Relationship Specialty Start Date End Date Kervin Kam MD [address] [place] [phone] PCP - General Internal Medicine 04/19/14 documented as of this encounter
--- OUTSIDE RECORDS SUMMARY | 2024-04-22 15:20 | XMS_ITS | Encounter Summary ---
Author Organization [facility] Address [address] [place] [address] Care Team Providers Care Fittings Tightener Name Role Phone Kervin Kam MD Primary Care Provider Encounter Details Date Type Department Care Team (Late st Contact Info) Description 07/23/2000 Outpatient Historical [facility] ENGRAVING SUPERVISOR - Medical [place] B [facility] [phone] [place] [address] Raul Bar MD [phone] [place] [address] Social History Tobacco Use Types Packs/Day Years Used Date Smoking Tobacco: Never Assessed Comments Unknown Sex and Gender Information Value Date Recorded Sex Assigned at Not on file Legal Sex Female 5:24 AM HAT LINER Gender Identity Not on file Sexual Orientation Not on file documented as of this encounter Plan of Treatment Not on file documented as of this encounter Visit Diagnoses Not on filedocumented in this encounter Care Teams Fittings Tightener Relationship Specialty Start Date End Date Kervin Kam MD [address] [place] [phone] PCP - General Internal Medicine 04/19/14 documented as of this encounter
--- OUTSIDE RECORDS SUMMARY | 2024-04-22 15:20 | XMS_ITS | Encounter Summary ---
Author Organization [facility] Address [address] [place] [address] Care Team Providers Care Upward Bound Director Name Role Phone Kervin Kam MD Primary Care Provider Encounter Details Date Type Department Care Team (Late st Contact Info) Description 09/19/2002 Outpatient Historical [facility] HEARING CARE PROFESSIONAL - Medical [place] [facility] [phone] [place] [address] Raul Bar MD [phone] [place] [address] Social History Tobacco Use Types Packs/Day Years Used Date Smoking Tobacco: Never Assessed Comments Unknown Sex and Gender Information Value Date Recorded Sex Assigned at Not on file Legal Sex Female 5:24 AM HOSPITAL INSURANCE CLERK Gender Identity Not on file Sexual Orientation Not on file documented as of this encounter Plan of Treatment Not on file documented as of this encounter Visit Diagnoses Not on filedocumented in this encounter Care Teams Upward Bound Director Relationship Specialty Start Date End Date Kervin Kam MD [address] [place] [phone] PCP - General Internal Medicine 04/19/14 documented as of this encounter
--- OUTSIDE RECORDS SUMMARY | 2024-04-22 15:20 | XMS_ITS | Encounter Summary ---
Author Organization [facility] Address [address] [place] [address] Care Team Providers Care Manager Registration Name Role Phone Kervin Kam MD Primary Care Provider Encounter Details Date Type Department Care Team (Late st Contact Info) Description 11/14/2002 Outpatient Historical [facility] [place] SUPERINTENDENT - Medical [place] B [facility] [phone] [place] [address] Raul Bar MD [phone] [place] [address] Social History Tobacco Use Types Packs/Day Years Used Date Smoking Tobacco: Never Assessed Comments Unknown Sex and Gender Information Value Date Recorded Sex Assigned at Not on file Legal Sex Female 5:24 AM ROLL CUTTING OPERATOR Gender Identity Not on file Sexual Orientation Not on file documented as of this encounter Plan of Treatment Not on file documented as of this encounter Visit Diagnoses Not on filedocumented in this encounter Care Teams Manager Registration Relationship Specialty Start Date End Date Kervin Kam MD [address] [place] [phone] PCP - General Internal Medicine 04/19/14 documented as of this encounter
--- OUTSIDE RECORDS SUMMARY | 2024-04-22 15:20 | XMS_ITS | Encounter Summary ---
Author Organization [facility] Address [address] [place] [address] Care Team Providers Care Teacher Tutor Name Role Phone Kervin Kam MD Primary Care Provider Encounter Details Date Type Department Care Team (Late st Contact Info) Description 09/26/2002 Outpatient Historical [facility] PHP DEVELOPER - Medical [place] B [facility] [phone] [place] [address] Raul Bar MD [phone] [place] [address] Social History Tobacco Use Types Packs/Day Years Used Date Smoking Tobacco: Never Assessed Comments Unknown Sex and Gender Information Value Date Recorded Sex Assigned at Not on file Legal Sex Female 5:24 AM RUG CLEANER Gender Identity Not on file Sexual Orientation Not on file documented as of this encounter Plan of Treatment Not on file documented as of this encounter Visit Diagnoses Not on filedocumented in this encounter Care Teams Teacher Tutor Relationship Specialty Start Date End Date Kervin Kam MD [address] [place] [phone] PCP - General Internal Medicine 04/19/14 documented as of this encounter
--- OUTSIDE RECORDS SUMMARY | 2024-04-22 15:20 | XMS_ITS | Encounter Summary ---
Author Organization [facility] Address [address] [place] [address] Care Team Providers Care Door Slinger Name Role Phone Kervin Kam MD Primary Care Provider Encounter Details Date Type Department Care Team (Late st Contact Info) Description 01/09/2003 Outpatient Historical [facility] LIGHT RAIL OPERATOR - Medical [place] B [facility] [phone] [place] [address] Raul Bar MD [phone] [place] [address] Social History Tobacco Use Types Packs/Day Years Used Date Smoking Tobacco: Never Assessed Comments Unknown Sex and Gender Information Value Date Recorded Sex Assigned at Not on file Legal Sex Female 5:24 AM PARCEL POST WEIGHER Gender Identity Not on file Sexual Orientation Not on file documented as of this encounter Plan of Treatment Not on file documented as of this encounter Visit Diagnoses Not on filedocumented in this encounter Care Teams Door Slinger Relationship Specialty Start Date End Date Kervin Kam MD [address] [place] [phone] PCP - General Internal Medicine 04/19/14 documented as of this encounter
--- OUTSIDE RECORDS SUMMARY | 2024-04-22 15:20 | XMS_ITS | Encounter Summary ---
Author Organization [facility] Address [address] [place] [address] Care Team Providers Care Church Organist Name Role Phone Kervin Kam MD Primary Care Provider Encounter Details Date Type Department Care Team (Late st Contact Info) Description 09/14/2002 Outpatient Historical [facility] ADVERTISING STRATEGIST - Medical [address] [address] Heri Carroll MD [address] [place] [address] Social History Tobacco Use Types Packs/Day Years Used Date Smoking Tobacco: Never Assessed Comments Unknown Sex and Gender Information Value Date Recorded Sex Assigned at Not on file Legal Sex Female 5:24 AM WALLPAPER PRINTER HELPER Gender Identity Not on file Sexual Orientation Not on file documented as of this encounter Plan of Treatment Not on file documented as of this encounter Visit Diagnoses Not on filedocumented in this encounter Care Teams Church Organist Relationship Specialty Start Date End Date Kervin Kam MD [address] [place] [address] PCP - General Internal Medicine 04/19/14 documented as of this encounter
--- OUTSIDE RECORDS SUMMARY | 2024-04-22 15:20 | XMS_ITS | Encounter Summary ---
Author Organization [facility] Address [address] [place] [address] Care Team Providers Care Cephalometric Analyst Name Role Phone Kervin Kam MD Primary Care Provider Encounter Details Date Type Department Care Team (Late st Contact Info) Description 05/06/2001 Outpatient Historical [facility] MAJOR GENERAL - Medical [place] B [facility] [id number] [place] [address] Raul Bar MD [id number] [place] [address] Social History Tobacco Use Types Packs/Day Years Used Date Smoking Tobacco: Never Assessed Comments Unknown Sex and Gender Information Value Date Recorded Sex Assigned at Not on file Legal Sex Female 5:24 AM DIRECTOR AUTO Gender Identity Not on file Sexual Orientation Not on file documented as of this encounter Plan of Treatment Not on file documented as of this encounter Visit Diagnoses Not on filedocumented in this encounter Care Teams Cephalometric Analyst Relationship Specialty Start Date End Date Kervin Kam MD [address] [place] [phone] PCP - General Internal Medicine 04/19/14 documented as of this encounter
[2024-04-22 15:26] VITALS: BP 142/79; PULSE 73; RESP 16; TEMP 36.8; O2SAT 100
--- NOTE | 2024-04-22 17:33 | ED.GENADULT ---
HPI - General Adult General Chief complaint: Neck Pain/Injury Stated complaint: neck pain/dizziness Source: patient Mode of arrival: ambulatory Limitations: no limitations History of Present Illness HPI narrative: Patient presents for evaluation of several symptoms. She has noted some muscle twitching in the right side her neck as of late. She cannot identify any aggravating or alleviating factors. She denies pain per se. No loss of range of motion. No recent injury. She states last night she had an episode where she felt dizzy and lightheaded for couple of hours. She states she felt off . She did not have the sensation that the room was spinning. She reports an increase in stress but states that stress levels are manageable. She is on daily targeted chemo for leukemia. She is also on synthroid but her dose has been stable. She has not had any recurrence of her dizziness or lightheadedness. She denies any chest pain, palpitations, SOB, lateralizing deficits, difficulty swallowing/breathing or speech abnormalities. She also reports some mild right sided ear discomfort without other ENT symptoms. Related Data Home Medications ?Medication ?Instructions ?Recorded ?Confirmed ?Last Taken ?Type bosutinib 400 mg tablet (Bosulif) mg PO 04/22/24 Unknown History esomeprazole magnesium 20 mg mg 04/22/24 Unknown History capsule,delayed release levothyroxine 88 mcg tablet mcg 04/22/24 Unknown History Allergies Allergy/AdvReac Type Severity Reaction Status Date / Time No Known Allergies Allergy Verified 04/22/24 15:28 Review of Systems Review of Systems: CONSTITUTIONAL: Denies fever, chills, or sweats. EYES: Denies visual changes, redness, or discharge. ENT: Reports mild right-sided ear discomfort. Denies rhinorrhea, congestion, sore throat CARDIOVASCULAR: Denies chest pain, palpitations, or edema. RESPIRATORY: Denies cough or dyspnea. GASTROINTESTINAL: Denies abdominal pain, nausea, vomiting, or diarrhea. GENITOURINARY: Denies dysuria or hematuria. SKIN: Denies rash or itching. MUSCULOSKELETAL: Reports muscle twitching the right side of the. Denies back pain, joint pain, or myalgia. NEUROLOGIC: Reports an episode of dizziness and lightheadedness last night, none since that time. Denies headache, numbness or weakness. PSYCHIATRIC: Denies anxiety or depression. [facility] Past Medical History Medical History Thyroid disorder Leukemia Surgical History Surgical History (Updated 04/22/24 @ 17:37 by Alberto Alba [facility], ) No pertinent past surgical history Family History Family History Mother Family history non-contributory Social History Social History Substance use: never Living arrangements: with family Gender identity (if verbalized by the patient): Female Sexual Orientation (if Verbalized by the Patient): Straight or Heterosexual Spiritual care concerns: No Exam Narrative: GENERAL: Well-appearing, well-nourished, and in no acute distress. HEAD: Normocephalic, atraumatic. EYES: PERRLA and EOMI. ENT: Nares clear, no rhinorrhea or epistaxis. Mucous membranes moist. Oropharynx without tonsillar hypertrophy exudate or other lesions. Bilateral TMs pearly de paz nonbulging NECK: Supple. No adenopathy or masses. No carotid bruits or JVD. There are some mild muscle fasciculations in right anterolateral aspect of the neck CHEST: Clear to auscultation. No respiratory distress. No wheezes rales or rhonchi HEART: Regular rate and rhythm. No murmur heard. Normal peripheral pulses. ABDOMEN: Soft, nontender, nondistended, normal active bowel sounds. EXTREMITIES: Normal range of motion. No edema. SKIN: Warm, dry, no rash. NEURO: No focal deficits. Alert and oriented x3. PSYCH: Normal mood and affect. Course Course Emergency Course: This is a 53-year-old female who presented for evaluation of muscle twitching in the right side of the neck as well as an episode of dizziness lightheadedness. She is neurologically intact on exam. I do not appreciate any bruits. She would likely benefit from non emergent labs including chemistry panel, magnesium, thyroid panel. I recommended she follow-up outpatient for that. I do not believe she needs to be transferred to the emergency department is have low consideration for stroke. However in the event that she has recurrent symptoms she should go to the emergency department. We did discuss potentially starting muscle relaxer were Vistaril to see if it would help with the muscle fasciculations. She declined. I think this is reasonable. She will follow-up with her primary care provider. I do not appreciate any abnormalities on her ear exam. Level of Care: Express Care Visit Vital Signs Vital signs: Vital Signs Temperature 36.8 C 04/22/24 15:26 Pulse Rate 73 04/22/24 15:26 Respiratory Rate 16 04/22/24 15:26 Blood Pressure 142/79 H 04/22/24 15:26 Pulse Oximetry 100 04/22/24 15:26 Oxygen Delivery Room Air 04/22/24 15:26 Temperature 36.8 C 04/22/24 15:26 Pulse Rate 73 04/22/24 15:26 Respiratory Rate 16 04/22/24 15:26 Blood Pressure 142/79 H 04/22/24 15:26 Pulse Oximetry 100 04/22/24 15:26 Oxygen Delivery Room Air 04/22/24 15:26 Medical Decision Making Vital Signs Vital Signs: Vital Signs Temperature 36.8 C 04/22/24 15:26 Pulse Rate 73 04/22/24 15:26 Respiratory Rate 16 04/22/24 15:26 Blood Pressure 142/79 H 04/22/24 15:26 Pulse Oximetry 100 04/22/24 15:26 Oxygen Delivery Room Air 04/22/24 15:26 Temperature 36.8 C 04/22/24 15:26 Pulse Rate 73 04/22/24 15:26 Respiratory Rate 16 04/22/24 15:26 Blood Pressure 142/79 H 04/22/24 15:26 Pulse Oximetry 100 04/22/24 15:26 Oxygen Delivery Room Air 04/22/24 15:26 Discharge Plan Discharge Clinical Impression: Muscle twitch, Lightheadedness Patient Disposition: Home, Self-Care Condition: Stable Instructions: Antibiotic Form, Lightheadedness (ED), Muscle Spasm (ED) Patient Language: Kinyarwanda Prescriptions: No Action levothyroxine 88 mcg tablet esomeprazole magnesium 20 mg capsule,delayed release(DR/EC) Bosulif 400 mg tablet PO Follow-up/Referrals: Kathleen Ward DO [Physician] - Time of Disposition: 17:32
== END 2024-04-22 17:35 | disposition home or self-care (01) ==
PROVIDERS: Emergency Provider Nurse Practitioner
DX: M62.838 Other muscle spasm (principal); R42 Dizziness and giddiness; Z85.6 Personal history of leukemia
CPT/HCPCS: 99202; G0463